=== PATIENT | female | born 1990 | race Caucasian/White ===

== ENCOUNTER 2024-01-20 10:21 | Emergency (ER) | payer OTHER, SELFPAY ==
[2024-01-20 10:21] VITALS: BP 126/72; PULSE 78; RESP 16; TEMP 36.7; O2SAT 97; BMI 25.0
--- NOTE | 2024-01-20 10:25 | XR_ITS ---
FINAL REPORT CLINICAL HISTORY: Right foot pain COMPARISON: None FINDINGS: 2 views of the right foot were obtained. There is no acute fracture or dislocation. The joint spaces are intact. There is no soft tissue abnormality. IMPRESSION: No acute process. Reviewed, Interpreted and Dictated by Darron Worthy III, MD Transcribed by Bernadine Mars Authenticated and [facility]
--- NOTE | 2024-01-20 10:25 | XR_ITS ---
FINAL REPORT CLINICAL HISTORY: Right lower leg pain COMPARISON: None FINDINGS: 2 views of the right tibia/fibula were obtained. There is no acute fracture or dislocation. The joint spaces are intact. There is a soft tissue defect at the anterior proximal lower leg. IMPRESSION: Soft tissue defect without acute bony abnormality. Reviewed, Interpreted and Dictated by Darron Worthy III, MD Transcribed by Bernadine Mars Authenticated and . [facility]
--- NOTE | 2024-01-20 10:25 | XR_ITS ---
FINAL REPORT CLINICAL HISTORY: Right ankle pain COMPARISON: None FINDINGS: Two views of the right ankle were obtained. There is no acute fracture or dislocation. The joint spaces are well preserved. There is no acute soft tissue abnormality. IMPRESSION: No acute abnormality identified. Reviewed, Interpreted and Dictated by Darron Worthy III, MD Transcribed by Bernadine Mars Authenticated and [facility] [place] [place]
--- NOTE | 2024-01-20 10:25 | XR_ITS ---
FINAL REPORT CLINICAL HISTORY: Right knee pain COMPARISON: None FINDINGS: Three views of the right knee reveal no evidence of fracture or dislocation. The bony alignment is normal. The joint spaces are preserved. There is no evidence of joint effusion. There is a soft tissue defect at the proximal lower leg anteriorly. IMPRESSION: Soft tissue defect without acute bony abnormality. Reviewed, Interpreted and Dictated by Darron Worthy III, MD Transcribed by Bernadine Mars Authenticated and [facility]
--- NOTE | 2024-01-20 10:27 | ED_ITS ---
Discharge Plan Disposition Patient Disposition: Home, Self-Care Condition: Good Chief Complaint: Fall Referrals Follow up/Referrals: Sacha Lambert MD [Primary Care Provider] - See instructions Activity Restrictions/Add. Instructions Additional Instructions/Restrictions: You have been evaluated in the ED for your complaints. You may follow-up with your PCP in the next 3 to 5 days. Please return to ED for any new or worsening symptoms. Please take Tylenol and ibuprofen as needed for pain. Please keep the wound clean and dry over the next several days. Sutures will need to be removed after 7 to 10 days. You can go to your PCP for removal or return to the ED. Clinical Impressions Clinical Impression: Fall, Knee pain, right, Laceration of knee, right Print Language Print Language: Luxembourgish Discharge ED Provider: Lorenzo Casarez General Adult HPI General Chief complaint: Fall Stated complaint: fall Time Seen by Provider: 01/20/24 10:22 History of Present Illness HPI narrative: 33-year-old female with no pertinent past medical history presents today for evaluation after having a fall. She states that she was walking when she slid and landed on her right knee sustaining injury., Complains of right knee pain, right tip/fib pain and right ankle pain. Tetanus is not up-to-date. Has not been ambulatory since the event. Denies hitting her head or loss of consciousness or any other associated injuries. no further complaints Related Data Allergies Allergy/AdvReac Type Severity Reaction Status Date / Time No Known Allergies Allergy Unverified 05/05/17 14:52 [facility] Disclaimer: The information contained in this section may have been updated after the patient was seen, as this information can be updated by other users. Social History Smoking Status: Current every day smoker alcohol intake: never current occupational status: other Travel in the last 8 weeks: None ROS Obtained: Yes All systems reviewed & no additional complaints except as documented Physical Exam General General appearance: alert and in no apparent distress Head Head exam: atraumatic and normocephalic Eye Eye exam: Present normal appearance, PERRL and EOMI ENT ENT exam: Present normal oropharynx and mucous membranes moist Neck Neck exam: Present full ROM; Absent meningismus Respiratory Respiratory exam: Absent respiratory distress, wheezes, stridor or accessory muscle use Cardiovascular Cardiovascular exam: Present normal rhythm Abdominal Exam Abdominal exam: Present soft; Absent distention, tenderness, guarding, rebound or rigidity Extremities Exam Extremities exam: Present tenderness (Tenderness to palpation over the right knee anteriorly, right hip/fib and right ankle. She does have an open wound over the right knee. Abrasions over the right ankle.); Absent normal inspection or full ROM Neurological Exam Neurological exam: Present alert, oriented X3 and CN II-XII intact; Absent motor sensory deficit Psychiatric Psychiatric exam: Present normal affect and normal mood Skin Skin exam: Present warm and dry Medical Decision Making Medical Records Medical records reviewed: Yes I reviewed the patient's medical records. Rakesh Inquiry Pt receiving controlled substance: No Rakesh was queried for this patient: No Vital Signs: 01/20/24 10:21 01/20/24 10:31 01/20/24 11:01 Temperature 98.1 F Temperature Source Oral Pulse Rate 136 H 77 Pulse Rate [Left Radial] 78 Respiratory Rate 16 Blood Pressure 126/72 131/92 H Blood Pressure [Right Arm] 126/72 Blood Pressure Mean [Right Arm] 90 02 Sat by Pulse Oximetry 97 96 99 Oxygen Delivery Method Room Air Room Air Orders (Tests/Meds): ED MEDICATIONS Discontinued Medications Generic Name Dose Route Start Last Admin Trade Name Freq PRN Reason Stop Dose Admin Cocaine HCl 1 ml 01/20/24 10:01/20/24 10:40 Cocaine 4% Topical Soln 4ml Bottle TP 01/20/24 10:26 1 ml ONCE ONE Administration Epinephrine HCl 1 mg 01/20/24 10:01/20/24 10:39 Epinephrine 1 Mg/Ml Ampul TP 01/20/24 10:26 1 mg ONCE ONE Administration Lidocaine HCl 1 ml 01/20/24 10:01/20/24 10:40 Lidocaine 2% Urojet 10ml TP 01/20/24 10:26 1 ml ONCE ONE Administration Morphine Sulfate 4 mg 01/20/24 10:01/20/24 10:39 Morphine 4mg/Ml Syringe IV 01/20/24 10:26 4 mg ONCE ONE Administration Ondansetron HCl 4 mg 01/20/24 10:01/20/24 10:39 Ondansetron 4mg/2ml Vial IV 01/20/24 10:26 4 mg ONCE ONE Administration Tetanus/Diphtheria Toxoids 0.5 ml 01/20/24 10:33 01/20/24 10:47 Tetanus-Diphth Toxoid, Adult 0.5ml Syr IM 01/20/24 10:34 0.5 ml .ONCE ONE Administration ORDERS Category Date Time Status Ankle XR - Right 2 Views [XR ankle RT 2V] Stat Exams 01/20/24 10:25 Completed Fibula/tibia XR right 2 views [XR tibia fibula RT 2V] Exams 01/20/24 10:25 Completed Stat Foot XR right 2 views [XR foot RT 2V] Stat Exams 01/20/24 10:25 Taken Knee XR right 3 views [XR knee RT 3V] Stat Exams 01/20/24 10:25 Completed Medical Decision Narrative: 33-year-old female with no pertinent past medical history presents today for evaluation after having a fall. She states that she was walking when she slid and landed on her right knee sustaining injury., Complains of right knee pain, right tip/fib pain and right ankle pain. Tetanus is not up-to-date. Has not been ambulatory since the event. Denies hitting her head or loss of consciousness or any other associated injuries. On assessment she was hemodynamically stable and in distress secondary to pain. Chest clear to station bilaterally abdomen soft nondistended nontender palpation. Tenderness to palpation over the right knee anteriorly, right hip/fib and right ankle. She does have an open wound over the right knee. 4cm laceration, no exposed bone. Abrasions over the right ankle. Palpable DP pulses. Otherwise exam vitals unremarkable differential diagnoses include but limited to open fracture, tibial plateau fracture, knee dislocation, tip/fib fracture, ankle fracture, among others X-ray imaging, informal interpretation did not show any acute bony abnormalities or tibial plateau fracture. Radiology report confirmed. I discussed ED workup and results with patient and patient was consented for laceration repair and her wound was cleansed with soap and water and irrigated extensively with removal of multiple debris. 1 running suture was placed with patient tolerating well. Her tetanus was also updated while in the ED. She was able to ambulate. Provided with return to ED precautions and instructions concerning PCP follow-up. Patient verbalized understanding and agreement with plan. Subsequently discharged hemodynamically stable and in no acute distress. Procedures Laceration Laceration 1: Site: lower extremity Side (If applicable): right Size (cm): 4 Description: flap and contaminated Depth: simple, single layer Local Anesthetic: lidocaine 1% Amount of anesthesia used (mL): 8 Pre-repair: wound explored and irrigated extensively Skin layer closed with: nylon Size (cm): 4-0 Number of sutures: 1 Technique: running Critical Care Critical Care Time Critical Care Time: No
[2024-01-20 10:31] VITALS: BP 126/72; PULSE 136; O2SAT 96
[2024-01-20] MEDS: MORPHINE 4MG/ML SYRINGE 4 MG IV (10:39)
[2024-01-20] MEDS: ONDANSETRON 4MG/2ML VIAL 4 MG IV (10:39)
[2024-01-20] MEDS: EPINEPHrine 1 MG/ML AMPUL TP (10:39)
[2024-01-20] MEDS: LIDOCAINE 2% UROJET 10ML TP (10:40)
[2024-01-20] MEDS: COCAINE 4% TOPICAL SOLN 4ML BOTTLE 1 ML TP (10:40)
--- NOTE | 2024-01-20 10:41 | PC.NURSE ---
RAD at [facility]
[2024-01-20] MEDS: TETANUS-DIPHTH TOXOID, ADULT 0.5ML SYR 0.5 ML IM (10:47)
--- NOTE | 2024-01-20 10:49 | PC.NURSE ---
Face sheet faxed to [facility]
[2024-01-20 11:01] VITALS: BP 131/92; PULSE 77; O2SAT 99
--- NOTE | 2024-01-20 11:01 | ECG_ITS ---
APPROVED REPORT Exam: Resting ECG HR:71 bpm ECG Measurements Heart Rate 71 AXES CO 145 P 45 QRSd 103 QRS 46 QT 397 T 46 QTc 419 Conclusion SINUS RHYTHM POSSIBLE RIGHT VENTRICULAR CONDUCTION DELAY [RSR (QR) IN V1/V2] BORDERLINE ECG UNCONFIRMED REPORT Electronically signed by : MARI LEON, 01/20/2024 15:43:10
--- NOTE | 2024-01-20 11:43 | PC.NURSE ---
pt able to ambulate with no problems
[2024-01-20 12:14] VITALS: BP 131/92; PULSE 77; RESP 16; TEMP 36.7; O2SAT 99
== END 2024-01-20 12:15 | disposition home or self-care (01) ==
PROVIDERS: Emergency Provider Emergency Medicine; PCP Family Medicine
DX: M79.661 Pain in right lower leg; M25.571 Pain in right ankle and joints of right foot; F17.200 Nicotine dependence, unspecified, uncomplicated; W01.0XXA Fall on same level from slipping, tripping and stumbling without subsequent striking against object, initial encounter; S81.011A Laceration without foreign body, right knee, initial encounter; Y92.9 Unspecified place or not applicable
CPT/HCPCS: 73562; 73590; 73600; 73620; 90471; 90714; 93005; 96374; 96375; 99285; J2270; J2405

== ENCOUNTER 2024-12-21 20:22 | Emergency (ER) | payer MEDICAID, SELFPAY ==
--- OUTSIDE RECORDS SUMMARY | 2024-11-18 17:43 | XMS_ITS | Encounter Summary ---
Author Organization [facility] Address [address] [place] [address] Care Team Providers Care Operations Administrative Assistant Name Role Phone Andres Armendariz MD Primary Care Provid er Reason for Visit * Reason Comments Headache Encounter Details Date Type Department Care Team (Late st Contact Info) Description 11/18/2024 5:43 PM EDT - 11/18/2024 7:57 PM EDT Emergency [facility] EM[facility] [address] [place] [id number] Catracho Cheung MD [address] [place] [address] Vamshi Cannon DO [address] [place] [address] Other migraine with status migrainosus, not intractable (Primary Dx) Discharge Disposition: Home or Self Care Social History Tobacco Use Types Packs/Day Years Used Date Smoking Tobacco: Never Assessed Abuse Screen Answer Date Recorded Feels Unsafe at Home or Work/School no 11/18/2024 Feels Threatened by Someone no 08/2024 Does Anyone Try to Keep You From Having Contact with Others or Doing Things Outside Your Home? no 11/18/2024 Physical Signs of Abuse Present no 11/18/2024 Comments No Sex and Gender Information Value Date Recorded Sex Assigned at Not on file Legal Sex Female 5:31 PM EDT Gender Identity Not on file Sexual Orientation Not on file documented as of this encounter Last Filed Vital Signs Vital Sign Reading Time Taken Comments Blood Pressure 149/105 11/18/2024 7:24 PM EDT Pulse 61 11/18/2024 7:30 PM EDT Temperature 36.6 C (97.8 F) 11/18/2024 7:30 PM EDT Respiratory Rate 18 11/18/2024 5:46 PM EDT Oxygen Saturation 99% 11/18/2024 7:30 PM EDT Inhaled Oxygen Concentration - - Weight 93 kg (205 lb) 11/18/2024 5:46 PM EDT Height 162.6 cm (5' 4 ) 11/18/2024 5:46 PM EDT Body Mass Index 35.19 11/18/2024 5:46 PM EDT documented in this encounter Functional Status * Calculated C-SSRS Risk Score (Lifetime/Recent) Answer Date of Assessment Author No Risk Indicated 11/18/2024 6:07 PM EDT Diana Chacon RN * [place] Suicide Severity Rating Scale (Screener/Recent Self-Report) Question Answer Date of Assessment Author 1. Wish to be (Past 1 Month) No 025 6:07 PM EDT Diana Akbar RN 2. Non-Specific Active Suici benedicto Thoughts (Past 1 Month) No 11/18/2024 6:07 PM EDT Paul Akbar RN 6. Suicidal Behavior (Lifetime) No 6:07 PM EDT Diana Akbar RN documented as of this encounter Discharge Instructions * Discharge Instructions* Pooja Norman APRN - 11/18/2024 7:49 PM EDT Rest, drink plenty of fluids. Continue with your home migraine medications as prescribed. You may take yoet-vux-hyzrtce acetaminophen and Motrin as needed for aches pains and fever. Follow-up with your family doctor as scheduled on for reevaluation and further treatment as necessary. Return to the emergency department immediately for any acutely developing neurological symptoms, any persistent vomiting, any fevers of 101 or greater or any new or worse concerns. * Attachments The following attachments cannot be sent through Care Everywhere. * Migraine Headache Uwhr-tx-Nqah (Icelandic) documented in this encounter Medications at Time of Discharge aspirin-acetamino phen-caffeine (EXCEDRIN MIGRAINE) 250-250-65 MG per tablet Take 1 tablet by mouth Every 6 (Six) Hours As Needed for Headache. buprenorphine-nal oxone (SUBOXONE) 8-[address] tablet [address] 1 tablet under the tongue Daily. Cariprazine HCl (Vraylar) 3 MG capsule capsule Take 1 capsule by mouth Daily. cetirizine (zyrTEC) 5 MG tablet Take 1 tablet by mouth Daily. Cholecalciferol 25 MCG (1000 UT) tablet Take 1 tablet by mouth Daily. guanFACINE (TENEX) 1 MG tablet Take 1 tablet by mouth Every Night. lisinopril (PRINIVIL,ZESTRIL ) 10 MG tablet Take 1 tablet by mouth Daily. polyethylene glycol (MiraLax) 17 g packet Take 17 g by mouth Daily. venlafaxine XR (EFFEXOR-XR) 37.5 MG 24 hr capsule Take 1 capsule by mouth Daily. documented as of this encounter ED Notes * Vamshi Cannon DO - 11/18/2024 7:57 PM EDT SHARED VISIT ATTESTATION: This visit was performed by myself and an APC. I personally approved the management plan/medical decision making and take responsibility for the patient management. SHARED VISIT NOTE: Patient is 34 y.o. year old female that presents to the ED for evaluation of migraine headache. Onset is been about 4 days now. Physical Exam ED Course: BP (!) 149/105 (BP Location: Right arm, Patient Position: Lying) Pulse 61 Temp 97.8 ??F (36.6 ??C) (Oral) Resp 18 Ht 162.6 cm (64 ) Wt 93 kg (205 lb) LMP (LMP Unknown) SpO2 99% BMI 35.19 kg/m?? The following orders were placed and all results were independently analyzed by me: Orders Placed This Encounter Procedures Manual Blood Pressure - Notify provider of result Manual Blood Pressure - Notify provider of result Vital Signs Recheck Medications Given in the Emergency Department: Medications sodium chloride 0.9 % bolus 1,000 mL (0 mL Intravenous Stopped 11/18/241941) metoclopramide (REGLAN) injection 10 mg (10 mg Intravenous Given 11/18/241848) ketorolac (TORADOL) injection 30 mg (30 mg Intravenous Given 11/18/241847) diphenhydrAMINE (BENADRYL) injection 25 mg (25 mg Intravenous Given 11/18/241848) ED Course: Labs: Lab Results (last 24 hours) No results found for the last 24 hours. Imaging: No Radiology Exams Resulted Within Past 24 Hours MDM: Procedures Vamshi Cannon DO 16:16 EDT 11/22/24 Vamshi Cannon DO 11/22/24 1616 * Emerson PoojaMANUEL - 11/18/2024 5:54 PM EDT Time: 5:54 PM EDT Date of encounter: 11/18/2024 Independent Historian/Clinical History and Information was obtained by: Patient History is limited by: N/A Chief Complaint: MIGRAINE History of Present Illness: The patient is a 34 y.o. year old female who presents to the emergency department for evaluation ofleft-sided buddhist migraine that she states she has had for 4 days. She reports that she has a history of migraines and takes Emgality at home but states is not working this week. She states that it has been constant. She denies any fevers. She reports no nausea vomiting or diarrhea. She states she has had no vision loss or changes but does get every now and then some intermittent blurry vision inher left eye. She denies any neck pain. She denies any recent falls or trauma and is alert and oriented with a grossly intact neuroexam. She has no nuchal rigidity. Patient Care Team Primary Care Provider: Andres Armendariz MD Past Medical History: Allergies Allergen Reactions Hydrocodone Anaphylaxis Wellbutrin [Bupropion] Other (See Comments) SI History reviewed. No pertinent past medical history. History reviewed. No pertinent surgical history. History reviewed. No pertinent family history. Home Medications: Prior to Admission medications Not on File Social History: Review of Systems: Review of Systems Constitutional: Negative for chills and fever. HENT: Negative for congestion, ear pain and sore throat. Eyes: Positive for visual disturbance (Intermittent left eye blurriness). Negative for photophobia and pain. Respiratory: Negative for cough, chest tightness, shortness of breath and wheezing. Cardiovascular: Negative for chest pain. Gastrointestinal: Negative for abdominal pain, diarrhea, nausea and vomiting. Genitourinary: Negative for flank pain and hematuria. Musculoskeletal: Negative for back pain, joint swelling, neck pain and neck stiffness. Skin: Negative for pallor and rash. Neurological: Positive for headaches. Negative for seizures. All other systems reviewed and are negative. Physical Exam: BP (!) 149/105 (BP Location: Right arm, Patient Position: Lying) Pulse 61 Temp 97.8 ??F (36.6 ??C) (Oral) Resp 18 Ht 162.6 cm (64 ) Wt 93 kg (205 lb) LMP (LMP Unknown) SpO2 99% BMI 35.19 kg/m?? Physical Exam Vitals and nursing note reviewed. Constitutional: General: She is not in acute distress. Appearance: Normal appearance. She is not ill-appearing or toxic-appearing. HENT: Head: Normocephalic and atraumatic. Nose: Nose normal. Eyes: General: No scleral icterus. Conjunctiva/sclera: Conjunctivae normal. Pupils: Pupils are equal, round, and reactive to light. Cardiovascular: Rate and Rhythm: Normal rate and regular rhythm. Pulses: Normal pulses. Pulmonary: Effort: Pulmonary effort is normal. No respiratory distress. Musculoskeletal: General: Normal range of motion. Cervical back: Normal range of motion and neck supple. No rigidity or tenderness. Lymphadenopathy: Cervical: No cervical adenopathy. Skin: General: Skin is warm and dry. Capillary Refill: Capillary refill takes less than 2 seconds. Findings: No rash. Neurological: General: No focal deficit present. Mental Status: She is alert and oriented to person, place, and time. Mental status is at baseline. Psychiatric: Mood and Affect: Mood normal. Behavior: Behavior normal. Medical Decision Making: Comorbidities that affect care: Migraine headaches External Notes reviewed: None The following orders were placed and all results were independently analyzed by me: Orders Placed This Encounter Procedures Manual Blood Pressure - Notify provider of result Manual Blood Pressure - Notify provider of result Vital Signs Recheck Medications Given in the Emergency Department: Medications sodium chloride 0.9 % bolus 1,000 mL (0 mL Intravenous Stopped 11/18/241941) metoclopramide (REGLAN) injection 10 mg (10 mg Intravenous Given 11/18/241848) ketorolac (TORADOL) injection 30 mg (30 mg Intravenous Given 11/18/241847) diphenhydrAMINE (BENADRYL) injection 25 mg (25 mg Intravenous Given 11/18/241848) ED Course: Labs: Lab Results (last 24 hours) No results found for the last 24 hours. Imaging: No Radiology Exams Resulted Within Past 24 Hours Differential Diagnosis and Discussion: Headache: Differential diagnosis includes but is not limited to migraine, cluster headache, hypertension, tumor, subarachnoid bleeding, pseudotumor cerebri, temporal arteritis, infections, tension headache, and TMJ syndrome. PROCEDURES: No orders to display Procedures MDM Number of Diagnoses or Management Options Other migraine with status migrainosus, not intractable: new and requires workup Risk of Complications, Morbidity, and/or Mortality Presenting problems: low Diagnostic procedures: low Management options: low Patient Progress Patient progress: stable Patient Care Considerations: ANTIBIOTICS: I considered prescribing antibiotics as an outpatient however no bacterial focus of infection was found. Consultants/Shared Management Plan: None Social Determinants of Health: Patient is independent, reliable, and has access to care. Disposition and Care Coordination: Discharged: The patient is suitable and stable for discharge with no need for consideration of admission. I have explained the patient??s condition, diagnoses and treatment plan based on the information available to me at this time. I have answered questions and addressed any concerns. The patient has a good understanding of the patient??s diagnosis, condition, and treatment plan as can be expected at this point. The vital signs have been stable. The patient??s condition is stable and appropriate fordischarge from the emergency department. The patient will pursue further outpatient evaluation with the primary care physician or other designated or consulting physician as outlined in the discharge instructions. They are agreeable to thisplan of care and follow-up instructions have been explained in detail. The patient has received these instructions in written format and has expressed an understanding of the discharge instructions. The patient is aware that any significant change in condition or worsening of symptoms should promptan immediate return to this or the closest emergency department or call to 911. I have explained discharge medications and the need for follow up with the patient/caretakers. Thiswas also printed in the discharge instructions. Patient was discharged with the following medications and follow up: Medication List No changes were made to your prescriptions during this visit. Andres Armendariz MD [address] [place] [address] THURSDAY FOR FOLLOW UP, SCHEDULED Final diagnoses: Other migraine with status migrainosus, not intractable ED Disposition ED Disposition Discharge Condition Stable Comment -- This medical record created using voice recognition software. Pooja Norman APRN 11/18/241956 Cosigned by Vamshi Cannon DO at 11/22/2024 4:16 PM EDT Associated attestation - Vamshi Cannon DO - 11/22/2024 4:16 PM EDT Vamshi Cannon DO 11/22/2024 16:16 EDT documented in this encounter Plan of Treatment Not on file documented as of this encounter Visit Diagnoses Diagnosis Other migraine with status migrainosus, not intractable- Primary documented in this encounter Administered Medications Inactive Administered Medications - up to 3 most recent administrations Medication Order MAR Action Action Date Dose Rate Site diphenhydrAMINE (BENADRYL) injection 25 mg 25 mg, Intravenous, Once, On Thu11/18/24 at 1845, For 1 dose, 25 mg may be given IV push over less than 1 minute. Caution: Look alike/sound alike drug alert. This med may be ordered in other forms and routes. Before giving verify the last time the drug was given by any route/form. Given 11/18/2024 6:49 PM EDT 25 mg ketorolac (TORADOL) injection 30 mg 30 mg, Intravenous, Once, On Thu11/18/24 at 1845, For 1 dose, Based on patient request - if ordered for moderate or severe pain, provider allows for administration of a medication prescribed for a lower pain scale. (BKC) If given for pain, use the following pain scale: Mild Pain = Pain Score of 1-3, CPOT 1-2 Moderate Pain = Pain Score of 4-6, CPOT 3-4 Severe Pain = Pain Score of 7-10, CPOT 5-8 Given 11/18/2024 6:48 PM EDT 30 mg metoclopramide (REGLAN) injection 10 mg 10 mg, Intravenous, Once, On Thu11/18/24 at 1845, For 1 dose, Doses of 10 mg or less can be given IV push undiluted over 1 to 2 minutes Given 11/18/2024 6:49 PM EDT 10 mg sodium chloride 0.9 % bolus 1,000 mL 1,000 mL, Intravenous, at 2,000 mL/hr, Administer over 0.5 Hours, Once, On Thu11/18/24 at 1845, For 1 dose New Bag 11/18/2024 6:48 PM EDT 1,000 mL 2000 mL/hr documented in this encounter Active and Recently Administered Medications Times are shown in EDT. Scheduled Medication Order 11/16/2024 11/17/2024 11/18/2024 diphenhydrAMINE (BENADRYL) injection 25 mg (COMPLETED) 25 mg, Intravenous, Once, On Thu11/18/24 at 1845, For 1 dose, 25 mg may be given IV push over less than 1 minute. Caution: Look alike/sound alike drug alert. This med may be ordered in other forms and routes. Before giving verify the last time the drug was given by any route/form. 1848 (Given - Provid er: Diana Akbar RN) ketorolac (TORADOL) injection 30 mg (COMPLETED) 30 mg, Intravenous, Once, On Thu11/18/24 at 1845, For 1 dose, Based on patient request - if ordered for moderate or severe pain, provider allows for administration of a medication prescribed for a lower pain scale. (BKC) If given for pain, use the following pain scale: Mild Pain = Pain Score of 1-3, CPOT 1-2 Moderate Pain = Pain Score of 4-6, CPOT 3-4 Severe Pain = Pain Score of 7-10, CPOT 5-8 1847 (Given - Provid er: Diana Akbar RN) metoclopramide (REGLAN) injection 10 mg (COMPLETED) 10 mg, Intravenous, Once, On Thu11/18/24 at 1845, For 1 dose, Doses of 10 mg or less can be given IV push undiluted over 1 to 2 minutes 1848 (Given - Provid er: Diana Akbar RN) sodium chloride 0.9 % bolus 1,000 mL (COMPLETED) 1,000 mL, Intravenous, at 2,000 mL/hr, Administer over 0.5 Hours, Once, On Thu11/18/24 at 1845, For 1 dose 1848 (New Bag - Prov ider: Diana Akbar RN)1942 (Stopped - Provider: Rachna Larson RN) documented in this encounter Care Teams Operations Administrative Assistant Relationship Specialty Start Date End Date Andres Armendariz MD [address] [place] [address] PCP - General Preventative Medicine 11/18/24 documented as of this encounter
--- OUTSIDE RECORDS SUMMARY | 2024-11-24 09:30 | XMS_ITS | Encounter Summary ---
Author Organization [place] [address] Care Team Providers Care Lard Tub Washer Name Role Phone Sacha Lambert MD Primary Care Provider [phone] Reason for Referral * Consultation (Routine) - Pending Review Specialty Diagnoses / Procedures Referred By Contdany t Referred To Contact Addiction Medicine Sacha Lambert MD [address] [place] [address] [place] [address] Phone: tel: fax: [facility] [address] [place] [address] Phone: tel: fax: Referral ID Status Reason Start Date Expiration Date V isits Requested Visits Authorized [id number] Pending Review 11/24/2024 11/24/2025 99 99 Reason for Visit * Reason Comments Medication Management Encounter Details Date Type Department Care Team (Late st Contact Info) Description 11/24/2024 9:30 AM EDT Office Visit [facility] [place] [address] [place] [address] Sacha Lambert MD [address] [place] [address] [place] BILL [id number] Opiate abuse, episodic (HCC) (Primary Dx); Prediabetes; Bipolar affective disorder, current episode mixed, without psychotic features (HCC); Generalized anxiety disorder; Opioid dependence with opioid-induced disorder (HCC) Social History Tobacco Use Types Packs/Day Years Used Date Smoking Tobacco: Every Day Cigarettes 1.5 21.6 Started: 05/18/2003 Smokeless Tobacco: Never Comments:Currently Vaping Alcohol Use Standard Drinks/Week Comments No 0 (1 standard drink = 0.6 oz pur e alcohol) recovering; none since [facility] Utilities Answer Date Recorded In the past 12 months has e Fig[employer], gas, oil, or water company threatened to shut off services in your home? No 06/14/2024 Overall Financial Resource Strain (CARDIA) Answe r Date Recorded How hard is it for you to pa y for the very basics like food, housing, medical care, and heating? Somewhat hard 06/14/2024 PHQ-2 Answer Date Recorded PHQ-2 Total Score 2 06/14/2024 [facility] - Occupational Stress Questionnaire Answer Date Recorded Do you feel stress - tense, restless, nervous, or anxious, or unable to sleep at night because your mind is troubled all the time - these days? To some extent 06/14/2024 Exercise Vital Sign Answer Date Recorde d On average, how many days pe r week do you engage in moderate to strenuous exercise (like a brisk walk)? 0 days 06/14/2024 On average, how many minutes do you engage in exercise at this level? 0 min 06/14/2024 Hunger Vital Sign Answer Date Recorded Within the past 12 months, y ou worried that your food would run out before you got the money to buy more. Never true 06/14/19 25 Within the past 12 months, t he food you bought just didn't last and you didn't have money to get more. Never true 06/14/2024 PRAPARE - Transportation Answer Date Re corded In the past 12 months, has l ack of transportation kept you from medical appointments or from getting medications? No 07/2022 In the past 12 months, has l ack of transportation kept you from meetings, work, or from getting things needed for daily living? No 12/18/2022 [facility] IP Transportation Answer D ate Recorded In the past 12 months, has l ack of reliable transportation kept you from medical appointments, meetings, work or from getting things needed for daily living? No 06/14/2024 Sexually Active Control Partners Comments Yes Male Comments No Sex and Gender Information Value Date Recorded Sex Assigned at Not on file Legal Sex Female 2:47 PM EDT Gender Identity Not on file Sexual Orientation Not on file documented as of this encounter Last Filed Vital Signs Vital Sign Reading Time Taken Comments Blood Pressure 124/78 11/24/2024 9:40 AM EDT Pulse 100 11/24/2024 9:40 AM EDT Temperature 37.1 C (98.7 F) 11/24/2024 9:40 AM EDT Respiratory Rate 18 11/24/2024 9:40 AM EDT Oxygen Saturation 98% 11/24/2024 9:40 AM EDT Inhaled Oxygen Concentration - - Weight 89.4 kg (197 lb) 11/24/2024 9:40 AM EDT Height 162.6 cm (5' 4 ) 11/24/2024 9:40 AM EDT Body Mass Index 33.81 11/24/2024 9:40 AM EDT documented in this encounter Functional Status * Is the person deaf or does he/she have serious difficulty hearing? Answer Date of Assessment Author No 05/19/2024 11:01 AM Patricio Partida RN * Is the person blind or does he/she have serious difficulty seeing even when wearing glasses? Answer Date of Assessment Author No 05/19/2024 11:01 AM Patricio Partida RN * Does this person have serious difficulty walking or climbing stairs? Answer Date of Assessment Author No 05/19/2024 11:01 AM Patricio Partida RN * Does this person have difficulty dressing or bathing? Answer Date of Assessment Author No 05/19/2024 11:01 AM Patricio Partida RN * Because of a physical, mental or emotional condition, does this person have difficulty doing errands alone such as visiting a doctor's office or shopping? Answer Date of Assessment Author No 05/19/2024 11:01 AM Patricio Partida RN documented as of this encounter Mental Status * Because of a physical, mental or emotional condition, does this person have serious difficulty concentrating, remembering or making decisions? Answer Entry Date Author No 05/19/2024 11:01 AM EST Elliot , Alevism, RN documented in this encounter Ordered Prescriptions Prescription Sig Dispense Quantity Refills Last Filled Start Date End Date busPIRone (BUSPAR) 10 mg Oral TabletIndications :Generalized anxiety disorder Take 1 Tablet by mouth 2 times daily. 180 Tablet 3 11/24/2024 cariprazine (VRAYLAR) 4.5 mg Oral CapsuleIndication s:Bipolar affective disorder, current episode mixed, without psychotic features (HCC) Take 1 Capsule by mouth daily. 90 Capsule 3 11/24/2024 Lancets Mis MiscIndications:P rediabetes Daily as needed 100 Each 2 11/24/2024 Blood-Glucose Meter Misc KitIndications:Pr ediabetes Use to check blood glucose levels to monitor for hypoglycemic events 1 Kit 11/24/2024 Blood Sugar Diagnostic Misc StripIndications: Prediabetes 1 Strip by Misc.(Non-Drug; Combo Route) route daily as needed. 100 Each 2 11/24/2024 documented in this encounter Progress Notes * Sacha Lambert MD - 11/24/2024 9:30 AM EDTAssociated Problem(s): Opiate abuse, episodic (HCC) Orders: POCT URINE DRUG SCREEN ICUP 14 COMPLIANCE OPIOID PANEL QUANT ONLY, URINE; Future AMB REFERRAL TO ADDICTION MEDICINE Recently released from 1 month inpatient rehab facility but had a relapse with methamphetamine use and possible opioid use 2 days ago. UDS today is positive for amphetamines, methamphetamine, and buprenorphine which she is currently prescribed. She still has a 10-day supply of buprenorphine. Referred to [facility] for further addiction management and counseling services and continue avoid buprenorphine management. When she is stable in her sobriety will consider managing her buprenorphinehere in the future but at this time she needs full early addiction management services including counseling group therapy to help achieve and maintain her sobriety -Patient reports she has ample Narcan at home * Sacha Lambert MD - 11/24/2024 9:30 AM EDTAssociated Problem(s): Prediabetes Orders: Blood Sugar Diagnostic Misc Strip; 1 Strip by Misc.(Non-Drug; Combo Route) route daily as needed. Blood-Glucose Meter [facility] Kit; Use to check blood glucose levels to monitor for hypoglycemic events Lancets [facility] Mis; Daily as needed * Sacha Lambert MD - 11/24/2024 9:30 AM EDTAssociated Problem(s): Bipolar affective disorder, current episode mixed, without psychotic features (HCC) Bipolar symptoms not well-controlled today, will increase from 3 mg to 4.5 mg of Vraylar. Orders: cariprazine (VRAYLAR) 4.5 mg Oral Capsule; Take 1 Capsule by mouth daily. * Sacha Lambert MD - 11/24/2024 9:30 AM EDTAssociated Problem(s): Generalized anxiety disorder Anxiety not well-controlled today, will add on BuSpar to regiment Orders: busPIRone (BUSPAR) 10 mg Oral Tablet; Take 1 Tablet by mouth 2 times daily. * Sacha Lambert MD - 11/24/2024 9:30 AM EDT Assessment & Plan Opiate abuse, episodic (HCC) Orders: POCT URINE DRUG SCREEN ICUP 14 COMPLIANCE OPIOID PANEL QUANT ONLY, URINE; Future AMB REFERRAL TO ADDICTION MEDICINE Recently released from 1 month inpatient rehab facility but had a relapse with methamphetamine use and possible opioid use 2 days ago. UDS today is positive for amphetamines, methamphetamine, and buprenorphine which she is currently prescribed. She still has a 10-day supply of buprenorphine. Referred to [facility] for further addiction management and counseling services and continue avoid buprenorphine management. When she is stable in her sobriety will consider managing her buprenorphinehere in the future but at this time she needs full early addiction management services including counseling group therapy to help achieve and maintain her sobriety -Patient reports she has ample Narcan at home Prediabetes [facility]: [facility] [address] [facility].(Non-Drug; Combo Route) route daily as needed. Blood-Glucose Meter Misc Kit; Use to check blood glucose levels to monitor for hypoglycemic events Lancets Misc Misc; Daily as needed Bipolar affective disorder, current episode mixed, without psychotic features (HCC) Bipolar symptoms not well-controlled today, will increase from 3 mg to 4.5 mg of Vraylar. Orders: cariprazine (VRAYLAR) 4.5 mg Oral Capsule; Take 1 Capsule by mouth daily. Generalized anxiety disorder Anxiety not well-controlled today, will add on BuSpar to regiment Orders: busPIRone (BUSPAR) 10 mg Oral Tablet; Take 1 Tablet by mouth 2 times daily. Progress Note: Vitals: 11/24/24 0940 BP: 124/78 Pulse: 100 Resp: 18 Temp: 98.7 ??F (37.1 ??C) TempSrc: Tympanic SpO2: 98% Weight: 197 lb (89.4 kg) Height: 5' 4 (1.626 m) Body mass index is 33.81 kg/m??. SUBJECTIVE: Chief Complaint Patient presents with Medication Management HPI: She was recently discharged from an inpatient rehab facility for opioid dependency and abuse. She was sober while she was in the facility but when she was released she had a lot of conflicts with family specifically her mother and a lot of life stressors. She did have a admitted relapse with methamphetamine, she is unsure if any opioids were contained within the methamphetamines unintentionally. She is on buprenorphine and has been taking this. She is interested in continuing her sobriety management and getting sober and staying sober. She is very motivated to stay sober to help take care of her kids. She feels like her anxiety and bipolar are not well-controlled currently which are contributing to some of the stressors for her substance abuse. Review of Systems Constitutional: Negative for activity change, chills, diaphoresis and fever. Psychiatric/Behavioral: Positive for dysphoric mood and sleep disturbance. Negative for behavioral problems and confusion. The patient is nervous/anxious. OBJECTIVE: Physical Exam Vitals reviewed. Constitutional: General: She is not in acute distress. Appearance: She is well-developed. She is not diaphoretic. HENT: Head: Normocephalic and atraumatic. Eyes: Pupils: Pupils are equal, round, and reactive to light. Cardiovascular: Rate and Rhythm: Normal rate and regular rhythm. Pulmonary: Effort: Pulmonary effort is normal. Breath sounds: Normal breath sounds. No wheezing. Skin: Findings: No rash. Neurological: Mental Status: She is alert and oriented to person, place, and time. Psychiatric: Mood and Affect: Mood is anxious. Speech: Speech is not tangential. Behavior: Behavior normal. Behavior is not agitated or aggressive. Thought Content: Thought content normal. Thought content does not include suicidal ideation. Judgment: Judgment normal. Judgment is not impulsive. documented in this encounter Plan of Treatment Scheduled Referrals Name Type Priority Associated Diagnoses Orde r Schedule AMB REFERRAL TO ADDICTION MEDICINE Outpatient Referral Routine Ordered: 11/24/2024 documented as of this encounter Goals Goal Patient Goal Type Associated Problems Recent Progress Patient-Stated? Author Blood Pressure < 140/90 Blood Pressure 122/70(12/06 8:04 AM EDT) No Iva Gonzalez MA Maintain a healthy diet, exercise regularly and maintain an ideal body weight General No Hannah Marshall RMA Will see Endocrinology by January 2023 General On track(2022 10:15 AM EDT) Yes Kate Shine RN Note: Will wear CGM to track glucose levels and use Dexcom Clarity so Endo/PCP can view blood sugars. 12/24/22 Endo appt on 01/26/23 Stay Tobacco Free Lifestyle No Hannah Marshall RMA To find myself again - Explore values work and self worth Care Plan Going back to old people No Araseli Lay LPCC documented as of this encounter Procedures Procedure Name Priority Date/Time Associated Diagnosis Comments POCT URINE DRUG SCREEN ICUP 14 Routine 11/24/2024 9:44 AM EDT Opiate abuse, episodic (HCC) Opioid dependence with opioid-induced disorder (HCC) COMPLIANCE OPIOID PANEL QUANT ONLY, URINE Routine 11/24/2024 9:44 AM EDT Opiate abuse, episodic (HCC) Opioid dependence with opioid-induced disorder (HCC) documented in this encounter Results * (ABNORMAL) COMPLIANCE OPIOID PANEL QUANT ONLY, URINE (11/24/2024 9:44 AM EDT) [facility] Medications Expected Buprenorphine 11/25/2024 4:06 PM EDT [facility]REF[facility] Hydrocodone <50 Cutoff 50 ng/mL ng/mL 11/25/2024 4:06 PM EDT [facility] Comment:e.g., Lorcet, Lortab , Vicodin, [place]; Minor Metabolite of Codeine Dihydrocodeine <50 Cutoff 50 ng/mL ng/mL 11/25/2024 4:06 PM EDT [facility] Comment:e.g., Didrate, Parzo ne, Parlor, Synalgos; Metabolite of Hydrocodone Norhydrocodone <50 Cutoff 50 ng/mL ng/mL 11/25/2024 4:06 PM EDT [facility] Comment:Metabolite of Hydroc odone Hydromorphone <50 Cutoff 50 ng/mL ng/mL 11/25/2024 4:06 PM EDT [facility] Comment:e.g., Dilaudid; also Metabolite of Hydrocodone and Minor Metabolite of Morphine Hydromorphone Glucuronide <50 Cutoff 50 ng/mL ng/mL 11/25/2024 4:06 PM EDT [facility] Comment:Metabolite of Hydrom orphone Oxycodone <50 Cutoff 50 ng/mL ng/mL 11/25/2024 4:06 PM EDT [facility] Comment:e.g., Oxycontin, Per cocet, Endocet, Percodan, Roxicet Noroxycodone <50 Cutoff 50 ng/mL ng/mL 11/25/2024 4:06 PM EDT [facility] Comment:Metabolite of Oxycod one Oxymorphone <50 Cutoff 50 ng/mL ng/mL 11/25/2024 4:06 PM EDT [facility] Comment:e.g., Opana; Metabol ite of Oxycodone Oxymorphone Glucuronide <50 Cutoff 50 ng/mL ng/mL 11/25/2024 4:06 PM EDT [facility] Comment:Metabolite of Oxycod one Noroxymorphone <50 Cutoff 50 ng/mL ng/mL 11/25/2024 4:06 PM EDT [facility] Comment:Metabolite of Oxycod one, and Oxymorphone, Noroxycodone Metabolite Tramadol <50 Cutoff 50 ng/mL ng/mL 11/25/2024 4:06 PM EDT [facility] Comment:e.g., Ultram, ConZip Y-Sbvvbarqz-vrw-Tra madol <50 Cutoff 50 ng/mL ng/mL 11/25/2024 4:06 PM EDT [facility] Comment:Metabolite of Tramad ol Codeine <50 Cutoff 50 ng/mL ng/mL 11/25/2024 4:06 PM EDT [facility] Comment:e.g., Acetaminophen w/Codeine, Tylenol3 w/ Codeine Codeine Glucuronide <50 Cutoff 50 ng/mL ng/mL 11/25/2024 4:06 PM EDT [facility] Comment:Metabolite of Codein e Meperidine <50 Cutoff 50 ng/mL ng/mL 11/25/2024 4:06 PM EDT [facility] Comment:e.g., Demerol, Pethi dine Normeperidine <50 Cutoff 50 ng/mL ng/mL 11/25/2024 4:06 PM EDT [facility] Comment:Metabolite of Meperi dine Morphine <50 Cutoff 50 ng/mL ng/mL 11/25/2024 4:06 PM EDT [facility] Comment:e.g., MS Contin, Carla anol; Metabolite of Codeine and Heroin; may reflect poppy seed ingestion Drrypovv-5-Lqblyrgc tha <25 Cutoff 25 ng/mL ng/mL 11/25/2024 4:06 PM EDT [facility] Comment:Metabolite of Morphi ne. Zvzekksg-1-Szlcxasf tha <25 Cutoff 25 ng/mL ng/mL 11/25/2024 4:06 PM EDT [facility] Comment:Metabolite of Morphi ne. Naloxone <25 Cutoff 25 ng/mL ng/mL 11/25/2024 4:06 PM EDT [facility] Comment:e.g., Narcan, Evzio Buprenorphine <5 Cutoff 5 ng/mL ng/mL 11/25/2024 4:06 PM EDT [facility] Comment:e.g., Suboxone, Subu angelina,Sublocade, Buprenex Buprenorphine Glucuronide 53(H) Cutoff 10 ng/mL ng/mL 11/25/2024 4:06 PM EDT [facility] Comment:Buprenorphine Metabo lite Norbuprenorphine 108(H) Cutoff 5 ng/mL ng/mL 11/25/2024 4:06 PM EDT [facility] Comment:Buprenorphine Metabo lite Norbuprenorphine Glucuronide >400(H) Cutoff 10 ng/mL ng/mL 11/25/2024 4:06 PM EDT [facility] Comment:Buprenorphine Metabo lite Fentanyl <1 Cutoff 1 ng/mL ng/mL 11/25/2024 4:06 PM EDT [facility] Comment:e.g.,Duragesic, Oral et, Actiq, Sublimaze, Innovar, Lazanda Norfentanyl <1 Cutoff 1 ng/mL ng/mL 11/25/2024 4:06 PM EDT [facility] Comment:Metabolite of Fentan yl 6-Monoacetylmorphin e (6MAM) <10 Cutoff 10 ng/mL ng/mL 11/25/2024 4:06 PM EDT [facility] Comment:Metabolite of Heroin ; Morphine is expected Methadone <50 Cutoff 50 ng/mL ng/mL 11/25/2024 4:06 PM EDT [facility] Comment:e.g., Dolophine, Met hadose, Amidone EDDP <50 Cutoff 50 ng/mL ng/mL 11/25/2024 4:06 PM EDT [facility] Comment:Methadone Metabolite Tapentadol <50 Cutoff 50 ng/mL ng/mL 11/25/2024 4:06 PM EDT [facility] Comment:Nucynta Tapentadol-Glucuron tha <50 Cutoff 50 ng/mL ng/mL 11/25/2024 4:06 PM EDT [facility] Comment:Metabolite of Tapent adol Urine Creatinine 224.0 mg/dL 11/26/19 25 4:06 PM EDT [facility] Comment: Greater than 20: Consistent with valid sample Greater than 2 but less than 20: Possible dilution Less than 2: Questionable valid sample Urine STRUCTURE OF URINARY TRACT PROPER / Unknown 11/24/2024 9:44 AM EDT 11/24/2024 9:44 AM EDT Narrative [facility] [employer], [facility] - 11/25/2024 4:06 PM EDT The absence of expected drug(s), and/or drug metabolite(s), may indicate non-compliance, diluted or adulterated urine, poor drug absorption, concentration of drug below the cut-off, timing of specimen collection relative to administration of drug, or limitations of testing. Specimens are held for 7 days. This test was developed, and its performance characteristics determined by [facility] ([facility]). It has not been cleared or approved by the FDA. This test is used for clinical purposes. It should not be regarded as investigational or for research. [facility] is certified under the Clinical Laboratory Improvement Amendments (CLIA) as qualified to perform high complexity clinical laboratory testing. Sacha Lambert MD URINE ORDERABLES Final Result Performing Organization Address City[facility]/ZIP Co de Phone Number [facility] [email or web address] [address], [place] [address] [facility] [address] [place], [place] [id number] * (ABNORMAL) POCT URINE DRUG SCREEN ICUP 14 (11/24/2024 9:44 AM EDT) Marijuana Metabolite Negative NG/ML [facility] Cocaine Metabolite Negative [facility]P OFF[facility] Morphine Urine neg NG/ML [facility] Methamphetamines Positive NG/ML [facility] Amphetamine Positive Indet/Pos /Neg [facility] Benzodiazepines Negative Indet/Pos /Neg [facility] Barbiturates Negative Indet/Pos /Neg [facility] Methadone Negative Indet/Pos /Neg [facility] Buprenorphine pos NG/ML [facility] Tricyclics, S Negative SEP OFFICE MDMA- Ecstasy (cutoff 200 ng/mL) neg SEP OFFICE Oxycodone Negative NG/ML [facility] Phencyclidine Negative SEP OFFICE PROPOXYPHENE Negative SEP OFFICE Lot Number SEP OFFICE Expiration Date SEP OFFICE SeriAl # SEP OFFICE 11/24/2024 9:44 AM EDT Sacha Lambert MD POINT OF CARE TEST ORDERABLES Final Result SEP OFF[facility] documented in this encounter Visit Diagnoses Diagnosis Opiate abuse, episodic (HCC)- Primary Opioid abuse, episodic Prediabetes Other abnormal glucose Bipolar affective disorder, current episode mixed, without psychotic features (HCC) Generalized anxiety disorder Opioid dependence with opioid-induced disorder (HCC) Unspecified drug-induced mental disorder documented in this encounter Discontinued Medications Medication Sig Discontinue Reason Start Date End Da te cariprazine (VRAYLAR) 1.5 mg Oral CapsuleIndications:Bip olar affective disorder, current episode mixed, without psychotic features (HCC) Take 1 Capsule by mouth daily. Dose adjustment 09/13/2024 11/24/2024 Blood-Glucose Meter [facility] KitIndications:Prediab etes Use to check blood glucose levels to monitor for hypoglycemic events Reorder 11/05/2023 11/24/[address] [facility] MiscIndications:Predia betes Daily as needed Reorder 11/05/2023 11/24/[address] [facility] StripIndications:Predi abetes [address] [facility].(Non-Drug; Combo Route) route daily as needed. Reorder 11/05/2023 11/24/2024 hydrOXYzine (ATARAX) 25 mg Oral TabletIndications:Bipo lar affective disorder, current episode mixed, without psychotic features (HCC) Take 1 Tablet by mouth 3 times daily as needed for Itching. Cancelled by 02/19/2024 11/24/2024 oxybutynin (DITROPAN-XL) 10 mg Oral Tablet Extended Rel 24 hrIndications:Stress incontinence of urine Take 1 Tablet by mouth daily. Cancelled by 10/22/2023 11/24/2024 VRAYLAR 3 mg Oral Capsule Take 3 mg by mouth nightly. at bedtime DELETE- Entered in Error 11/17/2024 11/24/2024 documented as of this encounter Historical Medications * This list may reflect changes made after this encounter. venlafaxine (EFFEXOR-XR) 37.5 mg Oral Capsule, Sust. Release 24 hr Take 37.5 mg by mouth daily. ondansetron (ZOFRAN) 4 mg Oral Tablet 11/09/2024 nicotine (NICODERM CQ) 21 mg/24 hr TD Patch 24 hr 10/15/2024 nalOXone (NARCAN) 4 mg/actuation Nasl [place], Non-Aerosol 09/27/2024 mirtazapine (REMERON) 15 mg Oral Tablet 10/04/2024 melatonin 5 mg Oral Tablet 10/19/2024 loratadine (CLARITIN) 10 mg Oral Tablet Take 10 mg by mouth daily. 11/08/2024 lisinopriL (PRINIVIL;ZESTRIL ) 10 mg Oral Tablet Take 10 mg by mouth daily. ibuprofen (ADVIL;MOTRIN) 800 mg Oral Tablet 10/02/2024 guanFACINE (TENEX) 1 mg Oral Tablet Take 1 mg by mouth nightly. cholecalciferol, vitamin D3, 25 mcg (1,000 unit) Oral Tablet Take 1,000 Units by mouth daily. aspirin-acetamino phen-caffeine (EXCEDRIN MIGRAINE) 250-250-65 mg Oral Tablet Take 1 Tablet by mouth. acetaminophen (TYLENOL) 500 mg Oral Tablet Take 500 mg by mouth 2 times daily as needed. 11/08/2024 VRAYLAR 3 mg Oral Capsule Take 3 mg by mouth nightly. at bedtime 11/17/2024 11/24/2024 buprenorphine-nal oxone (SUBOXONE) 2-0.5 mg SL Tablet, Sublingual 10/21/2024 12/06/2024 added in this encounter Additional Health Concerns Active Problems Noted Date Diagnosed Date Going back to old people 12/18/2022 Assessment Noted Time PHQ-9 Depression Total Score: 2 06/14/19 25 11:17 AM EST PHQ-2 Depression Total Score: 2 06/14/19 25 11:17 AM EST documented as of this encounter Care Teams Lard Tub Washer Relationship Specialty Start Date End Date Sacha Lambert MD [address] [place] [address] [place] [address] PCP - General Family Medicine 03/08/19 documented as of this encounter
--- OUTSIDE RECORDS SUMMARY | 2024-12-06 08:00 | XMS_ITS | Encounter Summary ---
Author Organization [place] [address] Care Team Providers Care Green Pipefitter Name Role Phone Sacha Lambert MD Primary Care Provider [phone] Reason for Visit * Reason Comments Other Patient is unable to get into rehab until December 16, and is needing medication to get her though until then Encounter Details Date Type Department Care Team (Late Contact Info) Description 12/06/2024 8:00 AM EDT Office Visit [facility]P [facility] [address] [place] [address] Sacha Lambert MD [address] [place] [address] [place] [address] Opioid use disorder (Primary Dx); Opiate abuse, episodic (HCC); Opioid dependence with opioid-induced disorder (HCC); Elevated blood sugar; Bipolar affective disorder, current episode mixed, without psychotic features (HCC) Social History Tobacco Use Types Packs/Day Years Used Date Smoking Tobacco: Every Day Cigarettes 1.5 21.6 Started: 05/18/2003 Smokeless Tobacco: Never Tobacco Cessation:Ready to Q uit: Not Asked; Counseling Given: Not Answered Comments:Currently Vaping Alcohol Use Standard Drinks/Week Comments No 0 (1 standard drink = 0.6 oz pur e alcohol) recovering; none since [facility] Utilities Answer Date Recorded In the past 12 months has [employer] electric, gas, oil, or water company threatened to shut off services in your home? No 06/14/2024 Overall Financial Resource Strain (CARDIA) Answe r Date Recorded How hard is it for you to pa y for the very basics like food, housing, medical care, and heating? Somewhat hard 06/14/2024 PHQ-2 Answer Date Recorded PHQ-2 Total Score 2 06/14/2024 [facility] - Occupational Stress [...] things needed for daily living? No 12/18/2022 [facility] IP Transportation Answer D ate Recorded In [...] Sign Reading Time Taken Comments Blood Pressure 122/70 12/06/2024 8:04 AM EDT Pulse 118 12/06/2024 8:04 AM EDT Temperature 36.7 C (98.1 F) 12/06/2024 8:04 AM EDT Respiratory Rate 18 12/06/2024 8:04 AM EDT Oxygen Saturation 97% 12/06/2024 8:04 AM EDT Inhaled Oxygen Concentration - - Weight 86.6 kg (191 lb) 12/06/2024 8:04 AM EDT Height 162.6 cm (5' 4 ) 12/06/2024 8:04 AM EDT Body Mass Index 32.79 12/06/2024 8:04 AM EDT documented in this encounter Functional [...] Entry Date Author No 05/19/2024 11:01 AM Patricio Partida RN documented in this encounter Ordered Prescriptions Prescription Sig Dispense Quantity Refills Last Filled Start Date End Date buprenorphine-nalox one (SUBOXONE) 8-2 mg SL FilmIndications:Opi oid use disorder,Opiate abuse, episodic (HCC),Opioid dependence with opioid-induced disorder (HCC) Place 1 Film under the tongue daily. 11 Each 12/06/2024 documented in this encounter Progress Notes * Sacha Lambert MD - 12/06/2024 8:00 AM EDTAssociated Problem(s): Opiate abuse, episodic (HCC) Orders: buprenorphine-naloxone (SUBOXONE) 8-2 mg SL Film; Place 1 Film under the tongue daily. * Sacha Lambert MD - 12/06/2024 8:00 AM EDTAssociated Problem(s): Bipolar affective disorder, current episode mixed, without psychotic features (HCC) Improving with higher dose of Vraylar but still having issues with negative symptoms and depressionsymptoms. Plans to establish care with psychiatry for further adjustments and management * Sacha Lambert MD - 12/06/2024 8:00 AM EDT Assessment & Plan Opioid use disorder Orders: buprenorphine-naloxone (SUBOXONE) 8-2 mg SL Film; Place 1 Film under the tongue daily. Has appointment to establish care with [facility] on December 16, 2024. She has been out of buprenorphine for going on 2 days and is having symptoms of withdrawal. Given additional buprenorphine prescription to cover her until she establishes care with [facility] on December 16, total of 11 films sent to her pharmacy. She does have Narcan at home per previous discussion. She has plan to establish care with psychiatry as well. She does feel like her moods improved with the higher dose of Vraylar but is still having a lot of negative thoughts and issues with depression. She denies any relapse or substance use since our last visit together Opiate abuse, episodic (HCC) Orders: buprenorphine-naloxone (SUBOXONE) 8-2 mg SL Film; Place 1 Film under the tongue daily. Opioid dependence with opioid-induced disorder (HCC) Orders: buprenorphine-naloxone (SUBOXONE) 8-2 mg SL Film; Place 1 Film under the tongue daily. Elevated blood sugar Orders: HEMOGLOBIN A1C; Future Reports elevated blood sugar readings at home sometimes as high as 200. Will check A1c to evaluate for prediabetes versus diabetes and consider starting metformin depending on A1c result Bipolar affective disorder, current episode mixed, without psychotic features (HCC) Improving with higher dose of Vraylar but still having issues with negative symptoms and depressionsymptoms. Plans to establish care with psychiatry for further adjustments and management Progress Note: Vitals: 12/06/24 0804 BP: 122/70 Pulse: 118 Resp: 18 Temp: 98.1 ??F (36.7 ??C) TempSrc: Temporal SpO2: 97% Weight: 191 lb (86.6 kg) Height: 5' 4 (1.626 m) Body mass index is 32.79 kg/m??. SUBJECTIVE: Chief Complaint Patient presents with Other Patient is unable to get into rehab until December 16, and is needing medication to get her though until then HPI: She is here today following up for history of opioid dependency and substance use disorder. She hasan appointment to schedule to establish care with [facility] on December 16, 2024. However she is out of her buprenorphine prescription as of yesterday. This is her second day without buprenorphine and she is having withdrawal symptoms including nausea, chills, and bodyaches. She wants to continue on buprenorphine until she establishes care with [facility] for further evaluation management and counseling. She does feel stable in her sobriety overall and was not having any withdrawal symptoms onher previous dose of 8/2 Suboxone 1 film daily. She feels like her depression symptoms have improved with higher dose of Vraylar but plans to establish care with a psychiatrist for further evaluation and management given her persistent negative symptoms and depression She also reports elevated blood sugar readings at home sometimes as high as 200. She does have a history of prediabetes but has not had an A1c checked in over a year. She is concerned that her blood sugar may be a little bit uncontrolled. She does feel somewhat jittery and shaky when her sugars arerunning high. The lowest sugar she was seen on her monitor was 79. Review of Systems Constitutional: Positive for fatigue. Negative for activity change and diaphoresis. Psychiatric/Behavioral: Positive for dysphoric mood and sleep disturbance. Negative for confusion, decreased concentration and suicidal ideas. The patient is not nervous/anxious. OBJECTIVE: Physical Exam Vitals reviewed. Constitutional: [...] oriented to person, place, and time. Psychiatric: Attention and Perception: Attention normal. Mood and Affect: Mood is anxious. Affect is not tearful. Behavior: Behavior normal. Behavior is not agitated, aggressive or hyperactive. Thought Content: Thought content normal. Thought content is not paranoid. Thought content does not include homicidal or suicidal ideation. Judgment: Judgment normal. documented in this encounter Plan of Treatment Scheduled Orders Name Type Priority Associated Diagnoses Orde r Schedule HEMOGLOBIN A1C Lab Routine Elevated blood sugar 1 Occurrences starting 12/06/2024 until 12/06/2025 documented as of this encounter Goals Goal [...] Lay LPCC documented as of this encounter Visit Diagnoses Diagnosis Opioid use disorder- Primary Opiate abuse, episodic (HCC) Opioid abuse, episodic Opioid dependence with opioid-induced disorder (HCC) Unspecified drug-induced mental disorder Elevated blood sugar Other abnormal glucose Bipolar affective disorder, current episode mixed, without psychotic features (HCC) documented in this encounter Discontinued Medications Medication Sig Discontinue Reason Start Date End Da te buprenorphine-naloxone (SUBOXONE) 2-0.5 mg SL Tablet, Sublingual DELETE- Entered in Error 10/22/19 25 12/06/2024 documented as of this encounter Additional Health Concerns Active Problems Noted Date Diagnosed Date Going back to old people 12/18/2022 Assessment Noted Time PHQ-9 Depression Total Score: 2 06/14/19 11:17 AM EST PHQ-2 Depression Total Score: 2 06/14/19 11:17 AM EST documented as of this encounter Care Teams Green Pipefitter Relationship Specialty Start Date End Date Sacha Lambert MD [address] [place] [address] [place] [address] PCP - General Family Medicine 03/08/19 documented as of this encounter
[2024-12-21 20:33] VITALS: BP 152/97; PULSE 125; RESP 20; TEMP 36.9; O2SAT 98; BMI 34.3
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
[2024-12-21] MEDS: LACTATED RINGERS 1000ML 1,000 ML 999 ML IV (20:49)
[2024-12-21] MEDS: KETOROLAC 30MG/ML VIAL 15 MG IV (20:49)
[2024-12-21] MEDS: METOCLOPRAMIDE HCL 10MG/2ML VIAL 10 MG IVP (20:49)
[2024-12-21] MEDS: ACETAMINOPHEN 500MG TAB 1000 MG PO (20:50)
--- OUTSIDE RECORDS SUMMARY | 2024-12-21 20:51 | XMS_ITS | Clinical Summary ---
Author Organization [facility] Address [address] [place] [address] Care Team Providers Care Transcriptionist Name Role Phone Unavailable Primary Care Provider Unavailabl e Social History Tobacco Use Types Packs/Day Years Used Date Smoking Tobacco: Never Assessed Comments Unknown Sex and Gender Information Value Date Recorded Sex Assigned at Not on file Legal Sex Female 7:54 PM EDT Gender Identity Not on file Sexual Orientation Not on file Plan of Treatment Health Maintenance Due Date Last Done Comments [facility]-Depression Screening 1990 [facility]-/Child/Adol SDOH Screenings 1990 [facility]-Varicella Vaccines (1 of 2 - 13+ 2-dose series) 2003 HPV Vaccines (1 - 3-dose series) 2005 [facility]- SDOH Screenings 2008 [facility]-Adult SDOH Screenings 2008 [facility]-DTaP,Tdap,and Td Vaccine s (1 - Tdap) 2009 [facility]-Hepatitis B Vaccines (1 of 3 - 19+ 3-dose series) 2009 [facility]-Pap Smear 2011 [facility]-Cervical Cancer Screening 2020 [facility]-HPV/Cotest 2020 [id number] Vaccine (1 - 20 24-25 season) 2024 [facility]-Influenza Vaccine (#1) 2025 [facility]-Zoster Vaccines (1 of 2) 2040 [facility]-HIB Vaccines Aged Out No longer e ligible based on patient's age to complete this topic [facility]-Hepatitis A Vaccines Aged Out No longer eligible based on patient's age to complete this topic [facility]-IPV Vaccines Aged Out No longer e ligible based on patient's age to complete this topic [facility]-Pneumococcal Vaccine: Pediatrics (0 to 5 Years) and At-Risk Patients (6 to 49 Years) Aged Out No long er eligible based on patient's age to complete this topic [facility]-Rotavirus Vaccines Aged Out No lo nger eligible based on patient's age to complete this topic
--- OUTSIDE RECORDS SUMMARY | 2024-12-21 20:51 | XMS_ITS | Encounter Summary ---
Author Organization [facility] Address [address] [place] [address] Care Team Providers Care Wire Drawing Setter Name Role Phone Andres Armendariz MD Primary Care Provid er Encounter Details Date Type Department Care Team (Latest Contact Info) Description 11/18/2024 Travel Social History Tobacco Use Types Packs/Day Years [...] on file documented as of this encounter Functional Status * Calculated C-SSRS Risk Score (Lifetime/Recent) Answer Date of Assessment Author No Risk Indicated 11/18/2024 6:07 PM EDT Diana Chacon RN * [place] Suicide Severity Rating Scale (Screener/Recent Self-Report) Question Answer Date of Assessment Author 1. Wish to be (Past 1 Month) No 025 6:07 PM EDT Diana Akbar RN 2. Non-Specific Active Suici benedicto Thoughts (Past 1 Month) No 11/18/2024 6:07 PM EDT Paul Akbar RN 6. Suicidal Behavior (Lifetime) No 6:07 PM EDT Diana Akbar RN documented as of this encounter Plan of Treatment Not on file documented as of this encounter Visit Diagnoses Not on filedocumented in this encounter Care Teams Wire Drawing Setter Relationship Specialty Start Date End Date Andres Armendariz MD [address] [place] [address] PCP - General Preventative Medicine 11/18/24 documented as of this encounter
--- OUTSIDE RECORDS SUMMARY | 2024-12-21 20:51 | XMS_ITS | Encounter Summary ---
Author Organization [place] [address] Care Team Providers Care Administrative Executive Name Role Phone Sacha Lambert MD Primary Care Provider [phone] Reason for Visit * Reason Onset Date Comments Appointment Needed 12/01/2024 Encounter Details Date Type Department Care Team (Late st Contact Info) Description 12/01/2024 Telephone SEP Aime [address] [place] [address] Sacha Lambert MD [address] [place] [address] [place] [address] Appointment Needed Social History Tobacco Use Types Packs/Day Years Used Date Smoking Tobacco: Every Day Cigarettes 1.5 21.6 Started: 05/18/2003 Smokeless Tobacco: Never Comments:Currently Vaping Alcohol Use Standard Drinks/Week Comments No 0 (1 standard drink = 0.6 oz pur e alcohol) recovering; none since [facility] Utilities Answer Date Recorded In the past 12 months has e electric, gas, oil, or water company threatened to shut off services in your home? No 06/14/2024 Overall Financial Resource Strain (CARDIA) Answe r Date Recorded How hard is it for you to pa y for the very basics like food, housing, medical care, and heating? Somewhat hard 06/14/2024 PHQ-2 Answer Date Recorded PHQ-2 Total Score 2 06/14/2024 [facility] Occupat [facility] - Occupational Stress [...] things needed for daily living? No 12/18/2022 [facility] IP Transportation Answer D ate Recorded [...] as of this encounter Functional Status * Is the person deaf or does he/she have serious difficulty hearing? Answer Date of Assessment Author No 05/19/2024 11:01 AM Patricio Partida RN * Is the person blind or does he/she have serious difficulty seeing even when wearing glasses? Answer Date of Assessment Author No 05/19/2024 11:01 AM Patricio Partida, ESVIN * Does this person have serious difficulty walking or climbing stairs? Answer Date of Assessment Author No 05/19/2024 11:01 AM Patricio Partida, RN * Does this person have difficulty dressing or bathing? Answer Date of Assessment Author No 05/19/2024 11:01 AM Patricio Partida, RN * Because of a physical, mental [...] Patricio Partida RN documented in this encounter Miscellaneous Notes * Telephone Encounter - Kacie Shah RMA - 12/01/2024 9:07 AM EDT Pt needs to reschedule appt , lmtcb documented in this encounter Plan of Treatment Not on file documented as of this encounter Goals Goal [...] Diagnoses Not on filedocumented in this encounter Additional Health Concerns Active Problems Noted Date Diagnosed Date Going back to old people 12/18/2022 Assessment Noted Time PHQ-9 Depression Total Score: 2 06/14/19 25 11:17 AM EST PHQ-2 Depression Total Score: 2 06/14/19 25 11:17 AM EST documented as of this encounter Care Teams Administrative Executive Relationship Specialty Start Date End Date Sacha Lambert MD [address] [address] [place], [place] [address] PCP - General Family Medicine 03/08/19 documented as of this encounter
--- OUTSIDE RECORDS SUMMARY | 2024-12-21 20:51 | XMS_ITS | Encounter Summary ---
Author Organization [place] [address] Care Team Providers Care Oil And Gas Well Treatment Operator Name Role Phone Sacha Lambert MD Primary Care Provider [phone] Reason for Visit * Reason Onset Date Comments Symptoms (Only Use If Pt Pus hes Back On Scheduling A Visit) 09/06/2024 Staph infection on face Encounter Details Date Type Department Care Team (Late st Contact Info) Description 09/06/2024 Telephone SEP Aime [address] [place] [address] Sacha Lambert MD [address] [place] [address] [place] [address] Symptoms (Only Use If Pt Pushes Back On Scheduling A Visit) (Staph infection on face) Social History Tobacco Use Types Packs/Day Years Used Date Smoking Tobacco: Every Day Cigarettes 1.5 21.6 Started: 05/18/2003 Smokeless Tobacco: Never Comments:Currently Vaping Alcohol Use Standard Drinks/Week Comments No 0 (1 standard drink = 0.6 oz pur e alcohol) recovering; none since [facility] Utilities Answer Date Recorded In the past 12 months has e electric, gas, oil, or water company threatened to shut off services in your home? No 06/14/2024 Overall Financial Resource Strain (CARDIA) Lisa r Date Recorded How hard is it for you to pa y for the very basics like food, housing, medical care, and heating? Somewhat hard 06/14/2024 PHQ-2 Answer Date Recorded PHQ-2 Total Score 2 06/14/2024 [facility] - Occupational Stress Questionnaire Answer Date Recorded [...] things needed for daily living? No 12/18/2022 [facility] IP Transportation Answer D ate Recorded In [...] 05/19/2024 11:01 AM Patricio Partida, ESVIN * Is the person blind or does he/she have serious difficulty seeing even when wearing glasses? Answer Date of Assessment Author No 05/19/2024 11:01 AM Patricio Partida, RN * Does this person have serious [...] Telephone Encounter - Kacie Shah RMA - 09/06/2024 4:32 PM EDT Pt notified * Telephone Encounter - Sacha Lambert MD - 09/06/2024 4:29 PM EDT I sent in an antibiotic for her skin infection on her face. Would recommend that she come into the office for an evaluation/appointment tomorrow if possible * Telephone Encounter - Rachna Ramirez MA - 09/06/2024 3:42 PM EDT Please advise. thank you * Telephone Encounter - Reji Garg CCMA - 09/06/2024 3:31 PM EDT Select the most appropriate reason for this telephone message: Symptoms Call Who is reporting the symptoms: Patient What symptom(s) is the patient experiencing: staph infection on face How long have symptoms been present: today Has the patient been seen for this:Yes Has the patient tried anything to relieve the symptoms and did it help: No If pain, what level on scale 1-10 (10 being the greatest): 8 Desired Outcome: Advice - pharmacy is out of body wash that is otc that Dr. Zia Lambert has advised in the past. Pharmacy & Location:[facility] Method of Communication: Phone Call Was patient transferred to Nurse Triage for additional help? N/A Additional Information: N/A documented in this encounter Plan of Treatment [...] On track(2022 10:15 AM EDT) Yes Kate Shine, RN Note: Will wear CGM to track [...] documented as of this encounter Care Teams Oil And Gas Well Treatment Operator Relationship Specialty Start Date End Date Sacha Lambert MD [address] [place] [address] [address] [place], [place] [address] PCP - General Family Medicine 03/08/19 documented as of this encounter
--- OUTSIDE RECORDS SUMMARY | 2024-12-21 20:51 | XMS_ITS | Clinical Summary ---
Author Organization [facility] Address [address] [place] [address] Care Team Providers Care Feather Drying Machine Operator Name Role Phone Andres Armendariz MD Primary Care Provid er Allergies Active Allergy Reactions Criticality Noted Date Comments Hydrocodone Anaphylaxis High 11/18/2024 Bupropion Other (See Comments) 11/18/2024 SI Medications polyethylene glycol (MiraLax) 17 g packet Take 17 g by mouth Daily. Active cetirizine (zyrTEC) 5 MG tablet Take 1 tablet by mouth Daily. Active lisinopril (PRINIVIL,ZESTR IL) 10 MG tablet Take 1 tablet by mouth Daily. Active Cholecalciferol 25 MCG (1000 UT) tablet Take 1 tablet by mouth Daily. Active buprenorphine-n aloxone (SUBOXONE) 8-2 MG per SL tablet Place 1 tablet under the tongue Daily. Active Cariprazine HCl (Vraylar) 3 MG capsule capsule Take 1 capsule by mouth Daily. Active guanFACINE (TENEX) 1 MG tablet Take 1 tablet by mouth Every Night. Active venlafaxine XR (EFFEXOR-XR) 37.5 MG 24 hr capsule Take 1 capsule by mouth Daily. Active aspirin-acetami nophen-caffeine (EXCEDRIN MIGRAINE) 250-250-65 MG per tablet Take 1 tablet by mouth Every 6 (Six) Hours As Needed for Headache. Active Encounters Date Type Department Care Team Description 11/18/2024 5:43 PM EDT - 11/18/2024 7:57 PM EDT Emergency [facility] [address] [place] [address] Catracho Cheung MD Bell, Todd, Other migraine with status migrainosus, not intractable (Primary Dx) Discharge Disposition: Home or Self Care 11/18/2024 Travel from Last 3 Months Social History Tobacco Use Types Packs/Day Years Used Date Smoking Tobacco: Never Assessed Abuse Screen Answer Date Recorded Feels Unsafe at Home or Work/School no 11/18/2024 Feels Threatened by Someone no 0708/2024 Does Anyone Try to Keep You From Having Contact with Others or Doing Things Outside Your Home? no 11/18/2024 Physical Signs of Abuse Present no 11/18/2024 Comments No Sex and Gender Information Value Date Recorded Sex Assigned at Not on file Legal Sex Female 5:31 PM EDT Gender Identity Not on file Sexual Orientation Not on file Last Filed Vital Signs Vital Sign Reading [...] Mass Index 35.19 11/18/2024 5:46 PM EDT Plan of Treatment Health Maintenance Due Date Last Done Comments ANNUAL PHYSICAL 1990 Annual Gynecologic Pelvic an d Breast Exam 1990 HEPATITIS C SCREENING 1990 COVID-19 Vaccine (3 - 2023-2 5 season) 2024 07/15/2022, 01/01/2021 INFLUENZA VACCINE 02/15/2025 01/29/2024, 02/16/2020 TDAP/TD VACCINES (4 - Td or Tdap) 01/19/2034 01/20/2024, 01/21/2023, 10/23/2004 Pneumococcal Vaccine 0-49 Aged Out No longer eligible based on patient's age to complete this topic Insurance [facility] [place]ICAID [place] Care Teams Feather Drying Machine Operator Relationship Specialty Start Date End Date Andres Armendariz MD [address] [place] [address] PCP - General Preventative Medicine 11/18/24
--- OUTSIDE RECORDS SUMMARY | 2024-12-21 20:51 | XMS_ITS | Encounter Summary ---
Author Organization [place] [address] Care Team Providers Care Leisure Studies Professor Name Role Phone Sacha Lambert MD Primary Care Provider [phone] Encounter Details Date Type Department Care Team (Late st Contact Info) Description 09/16/2024 Results Follow-Up SEP Aime [facility] [place] [address] Sacha Lambert MD [address] [place] [address] [place] [address] WOUND CULTURE (STAIN INCLUDED) Social History Tobacco Use Types Packs/Day Years Used Date Smoking Tobacco: Every Day Cigarettes 1.5 21.6 Started: 05/18/2003 Smokeless Tobacco: Never Comments:Currently Vaping Alcohol Use Standard Drinks/Week Comments No 0 (1 standard drink = 0.6 oz pur e alcohol) recovering; none since [facility] Utilities Answer Date Recorded In the [...] Date Recorded PHQ-2 Total Score 2 06/14/2024 [facility] of Occupat ional Health - Occupational Stress [...] things needed for daily living? No 12/18/2022 [facility] IP Transportation Answer D ate Recorded In [...] 05/19/2024 11:01 AM Patricio Partida, ESVIN * Because of a physical, mental or [...] Patricio Partida RN documented in this encounter Progress Notes * Sacha Lambert MD - 09/16/2024 8:48 AM EDT The antibiotic prescribed should clear the infection. Please complete the full course of antibiotics. documented in this encounter Plan of Treatment [...] documented as of this encounter Care Teams Leisure Studies Professor Relationship Specialty Start Date End Date Sacha Lambert MD [address] [place] [address] [address] [place], [place] [address] PCP - General Family Medicine 03/08/19 documented as of this encounter
--- OUTSIDE RECORDS SUMMARY | 2024-12-21 20:51 | XMS_ITS | Encounter Summary ---
Author Organization [place] [address] Care Team Providers Care Hardware Design Engineer Name Role Phone Sacha Lambert MD Primary Care Provider [phone] Reason for Visit * Reason Onset Date Comments Other 11/24/2024 calling to say stella kessler can't get pt in until December 16. Encounter Details Date Type Department Care Team (Late Contact Info) Description 11/24/2024 Telephone SEP Aime [facility] [place] [address] Sacha Lambert MD [address] [place] [address] [place] [address] Other (calling to say am[facility] can't get pt in until December 16. ) Social History Tobacco Use Types Packs/Day Years Used Date Smoking Tobacco: Every Day Cigarettes 1.5 21.6 Started: 05/18/2003 Smokeless Tobacco: Never Comments:Currently Vaping Alcohol Use Standard Drinks/Week Comments No 0 (1 standard drink = 0.6 oz pur e alcohol) recovering; none since [facility] Utilities Answer Date Recorded In the [...] Date Recorded PHQ-2 Total Score 2 06/14/2024 [facility] [place] [facility] - Occupational Stress [...] things needed for daily living? No 12/18/2022 [facility] IP Transportation Answer D ate [...] Telephone Encounter - Kacie Shah RMA - 11/25/2024 8:25 AM EDT Pt notified , appt made * Telephone Encounter - Sacha Lambert MD - 11/25/2024 8:04 AM EDT She should make a follow-up appointment with me in 7 to 10 days so we can continue on her buprenorphine at the current dose until she can establish care with [facility] in December. Would recommend that they take the December 16 appointment but I will continue her buprenorphine medication until she is able to be seen by them * Telephone Encounter - Kacie Shah RMA - 11/24/2024 1:32 PM EDT FYI * Telephone Encounter - Nir Portillo - 11/24/2024 1:24 PM EDT Select the most appropriate reason for this telephone message: Other Who is calling (name & relationship to patient if not the patient): pt mother What is needed OR why are they calling: calling to say [facility] can't get pt in until December 16. When is this needed by: keiry Where does this information need to go: pcp Return Method of Communication: Phone Call Additional information:N/A documented in this encounter Plan of Treatment [...] documented as of this encounter Care Teams Hardware Design Engineer Relationship Specialty Start Date End Date Sacha Lambert MD [address] [place] [address] [address] [place], [place] [address] PCP - General Family Medicine 03/08/19 documented as of this encounter
--- OUTSIDE RECORDS SUMMARY | 2024-12-21 20:51 | XMS_ITS ---
Care Plan Created on: December 21, 2024 Yarely Parra : 1990 Sex: Female Author Organization [facility] Address [address] [place] [id number] Care Team Providers Care Property Worker Name Role Phone Sacha Lambert MD Primary Care Provider [phone] Active Problems * This document contains information received from the source organization and may not represent a complete record from that organization. Problem Noted Date Diagnosed Date Sepsis 06/14/2024 Assessment & Plan (06/17/2024 5:28 PM EST): Resolved UA negative Blood cx negative Source is facial abscess Received iv vanc inpatient Assessment & Plan (06/16/2024 12:55 PM EST): Resolved UA negative Blood cx pending Source is facial abscess Start vanc Assessment & Plan (06/15/2024 1:15 PM EST): Resolved UA negative Blood cx pending Source is facial abscess Continue iv abx Assessment & Plan (06/14/2024 1:16 PM EST): Check ua, blood cultures Continue iv abx Start fluids Hold lisinopril and hctz Prediabetes 06/14/2024 Assessment & Plan (06/17/2024 5:28 PM EST): A1c 5.7 Tight sugar control with SSI given infection Assessment & Plan (06/16/2024 8:53 AM EST): A1c 5.7 Tight sugar control with SSI given infection Assessment & Plan (06/15/2024 9:57 AM EST): A1c 5.7 Tight sugar control with SSI given infection Assessment & Plan (06/14/2024 1:16 PM EST): A1c 5.7 Tight sugar control with SSI given infection Facial cellulitis 06/13/2024 Assessment & Plan (06/17/2024 5:28 PM EST): Noted CT face and orbits There is sparing of the left orbit per CT and no evidence of orbital cellulitis ENT consulted S/p I&D 06/15 Concern for MRSA abscess per them Vanc inpatient Dc with bactrim Close f/u with ENT Assessment & Plan (06/16/2024 12:55 PM EST): Noted CT face and orbits There is sparing of the left orbit per CT and no evidence of orbital cellulitis ENT consulted S/p I&D 06/15 Concern for MRSA abscess per them Dc unasyn and start vanc Follow up on cultures sent yesterday Assessment & Plan (06/15/2024 1:15 PM EST): Noted CT face and orbits There is sparing of the left orbit per CT and no evidence of orbital cellulitis ENT consulted Discussed with ENT PA She will be doing I&D today Assessment & Plan (06/14/2024 1:16 PM EST): Noted CT face and orbits There is sparing of the left orbit per CT and no evidence of orbital cellulitis However extensive facial cellulitis ENT consulted Recommend continuing iv abx for now Facial swelling 05/16/2024 IFG (impaired fasting glucose) 01/26/2023 Reactive hypoglycemia 01/26/2023 Prediabetes 12/18/2022 Assessment & Plan (11/24/2024 10:13 AM EDT): Orders: Blood Sugar Diagnostic Misc Strip; 1 Strip by Misc.(Non-Drug; Combo Route) route daily as needed. Blood-Glucose Meter Misc Kit; Use to check blood glucose levels to monitor for hypoglycemic events Lancets Mis Misc; Daily as needed Assessment & Plan (04/11/2024 8:59 AM EST): Orders: HEMOGLOBIN A1C; Future TSH REFLEX; Future COMPREHENSIVE METABOLIC PANEL; Future Vitamin D deficiency 12/18/2022 Arm mass, left 10/23/2020 Overview (10/23/2020): Added automatically from request for surgery [id number] Generalized anxiety disorder 04/24/2020 Assessment & Plan (11/24/2024 10:13 AM EDT): Anxiety not well-controlled today, will add on BuSpar to regiment Orders: busPIRone (BUSPAR) 10 mg Oral Tablet; Take 1 Tablet by mouth 2 times daily. Assessment & Plan (06/17/2024 5:28 PM EST): Continue hydroxyzine Assessment & Plan (06/16/2024 8:53 AM EST): Continue hydroxyzine Assessment & Plan (06/15/2024 9:57 AM EST): Continue hydroxyzine Assessment & Plan (06/14/2024 1:16 PM EST): Continue hydroxyzine Migraine with aura and witho ut status migrainosus, not intractable 02/28/2020 Severe opioid dependence 05/02/2019 Overview (08/29/2019): Substance use Hx: (type, quant, route): percocet pill, snorted Frequency: 7 a day How lon years Longest sobriety: 60 days Progression: Last exposure: 02-03-19 (type, quant, route): Meth, smoked, 1 gram Frequency: 10 times a day How lon year Longest sobriety: 60 days Progression: Last exposure: History of substance use related seizures: no Substances: (Tolerance: A state of adaptation in which exposure to a drug induces changes that result in diminution of one or more of the drug's effects over time.) Evidence of tolerance to any substance: no Substances: (Dependence: A state of adaptation that is manifested by a drug class specific withdrawal syndrome that can be produced by abrupt cessation, rapid dose reduction, decreasing blood level of the drug, and / or administration of an antagonist.) Evidence of dependence to any substance: no and yes Substances: (Substance abuse: A maladaptive pattern of substance use leading to clinically significant impairment or distress, as manifested by one or more of the following, occuring with in a 12-month period: 1. Recurrent substance use resulting in a failure to fulfill major role obligations at work, school, or home. 2. Recurrent substance use in situations in which it is physically hazardous. 3. Recurrent substance- related legal problems. 4. Continued substance use despite having persistent or recurrent social or interpersonal problems caused or exacerbated by the effects of the substance. Evidence of substance abuse: no and yes Substances: Evidence of opioid use disorder: no and yes (if yes insert DSM5 check list) History of opioid withdrawal: no and yes (If yes insert DSM5 criteria) History of overdose: no Substances: Treatment history: (inpatient / outpatient, MAT, 12 steps, location, dates) Inpatient 12 steps program 02-03-19. She went to [facility] to 03/05/19 Consequences of drug use: Loss of family, health, money and a job. How is pt feeling? Depressed Currently intoxicated? (if yes list symptomology): no Insight, motivation, readiness to change? yes Stage of change (precontemplative, contemplative, preparative, action, maintenance, relapse): yes Past psychiatric history: (Dx, duration, course, treatment): Depression and anxiety Previous psych hospital admissions: no Physical abuse hx: no Mood sympotms Depression: no and yes Anxiety: no and yes Insomnia: no and yes Rapid thoughts: no and yes Difficulty with focus: no and yes Forgetfulness: no and yes Crying spells: no and yes Anger control issues: no and yes Mood swings: no and yes Palpitatons: yes SOB: no Nausea: no and yes Appetite change: no and yes Panic attacks: no and yes HSI: no AVH: no Thoughts of : no and yes Despair: no Anhedonia: no TP: linear, TC: logical, mood: , affect: Congruent Sexual history: Sexually active: yes Length of time with current partner: 12 years Number of partners in lifetime: 2 Practices safe sex: no and yes High risk sexual behavior? no STD hx: no Any current STD symptoms: no Sexual abuse hx: no Social recovery environment: Living situation: Living with her mother Family / social support: Her mom and brothers. Relationships: (Single / / / ): single Children: 2 she has a son who is 6 and a daughter who is 2. Problems at school or work? no Relational problems with spouse or children? yes Involvement in violence? no Legal charges for public intox, altercations, possession or DUI? no Financial problems? no Partner with substance use disorder? yes School hx: Graduated high school and is attending college now. 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 Last menstrual period and risk of (for female patients): No results found for this visit on 04/04/19. Patients past medical, family and social histories were reviewed and updated. There were no changes except as noted. DSMV Opioid Use Disorder diagnostic criteria Opioid Use Disorder requires at least 2 criteria be met within a 12 month period 1. Opioids are often taken in larger amounts or over a longer period of time than intended. yes 2. There is a persistent desire or unsuccessful efforts to cut down or control opioid use. yes 3. A great deal of time is spent in activities necessary to obtain the opioid, use the opiod, or recover from its effects. yes 4. Craving, or a strong desire to use opioids. yes 5. Recurrent opioid use resulting in failure to fulfill major role obligations at work, school, or home. yes 6. Continued opioid use despite having persistent or recurrent social or interpersonal problems caused or exacerbated by the effects of opioids. yes 7. Important social, occupational or recreational activities are given up or reduced because of opioid use. yes 8. Recurrent opioid use in situations in which it is physically hazardous. no 9. Continued use despite knowledge of having a persistent or recurrent physical or psychological problem that is likely to have been caused or exacerbated by opioids. yes 10. * Tolerance as defined by either of the following: A. A need for markedly increased amounts of opiods to achieve intoxication or desired effect. yes B. Markedly diminished effect with continued use of the same amount of an opioid. yes 11. * Withdrawal, as manifested by either of the following: A. The characteristic opioid withdrawal syndrome. yes B. The same (or a closely related) substance are taken to relieve or avoid withdrawal symptoms. yes * This criterion is not considered to be met for those individuals taking opioids solely under appropriate medical supervision. Severity: Mild: 2-3 symptoms, Moderate: 4-5 symptoms, Severe: 6 or more symptoms Total: 10 Assessment & Plan (11/24/2019 2:56 PM EDT): Last injection about 2 month ago. Has not been able to get in to office because she has a new job and working. Has been taking oral naltrexone. Able to maintain sobriety. 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 Given naltrexone IM and encouraged 28 day followup Assessment & Plan (08/29/2019 4:35 PM EDT): Has been able to maintain sobriety. Staying busy at work. Biggest concern is for increased cravings about 3 weeks after injection. Took the oral naltrexone daily during the cravings and that does help. Will continue this plan. Encouraged NA meetings online has all in person meetings have ceased. Follow-up 28 days or sooner as needed. Opiate abuse, episodic 04/04/2019 Overview (04/04/2019): Substance use Hx: (type, quant, route): percocet pill, snorted Frequency: 7 a day How lon years Longest sobriety: 60 days Progression: Last exposure: 02-03-19 (type, quant, route): Meth, smoked, 1 gram Frequency: 10 times a day How lon year Longest sobriety: 60 days Progression: Last exposure: History of substance use related seizures: no Substances: (Tolerance: A state of adaptation in which exposure to a drug induces changes that result in diminution of one or more of the drug's effects over time.) Evidence of tolerance to any substance: no Substances: (Dependence: A state of adaptation that is manifested by a drug class specific withdrawal syndrome that can be produced by abrupt cessation, rapid dose reduction, decreasing blood level of the drug, and / or administration of an antagonist.) Evidence of dependence to any substance: no and yes Substances: (Substance abuse: A maladaptive pattern of substance use leading to clinically significant impairment or distress, as manifested by one or more of the following, occuring with in a 12-month period: 1. Recurrent substance use resulting in a failure to fulfill major role obligations at work, school, or home. 2. Recurrent substance use in situations in which it is physically hazardous. 3. Recurrent substance- related legal problems. 4. Continued substance use despite having persistent or recurrent social or interpersonal problems caused or exacerbated by the effects of the substance. Evidence of substance abuse: no and yes Substances: Evidence of opioid use disorder: no and yes (if yes insert DSM5 check list) History of opioid withdrawal: no and yes (If yes insert DSM5 criteria) History of overdose: no Substances: Treatment history: (inpatient / outpatient, MAT, 12 steps, location, dates) Inpatient 12 steps program 02-03-19. She went to [facility] in [place] to 03/05/19 Consequences of drug use: Loss of family, health, money and a job. How is pt feeling? Depressed Currently intoxicated? (if yes list symptomology): no Insight, motivation, readiness to change? yes Stage of change (precontemplative, contemplative, preparative, action, maintenance, relapse): yes Past psychiatric history: (Dx, duration, course, treatment): Depression and anxiety Previous psych hospital admissions: no Physical abuse hx: no Mood sympotms Depression: no and yes Anxiety: no and yes Insomnia: no and yes Rapid thoughts: no and yes Difficulty with focus: no and yes Forgetfulness: no and yes Crying spells: no and yes Anger control issues: no and yes Mood swings: no and yes Palpitatons: yes SOB: no Nausea: no and yes Appetite change: no and yes Panic attacks: no and yes HSI: no AVH: no Thoughts of : no and yes Despair: no Anhedonia: no TP: linear, TC: logical, mood: , affect: Congruent Sexual history: Sexually active: yes Length of time with current partner: 12 years Number of partners in lifetime: 2 Practices safe sex: no and yes High risk sexual behavior? no STD hx: no Any current STD symptoms: no Sexual abuse hx: no Social recovery environment: Living situation: Living with her mother Family / social support: Her mom and brothers. Relationships: (Single / / / ): single Children: 2 she has a son who is 6 and a daughter who is 2. Problems at school or work? no Relational problems with spouse or children? yes Involvement in violence? no Legal charges for public intox, altercations, possession or DUI? no Financial problems? no Partner with substance use disorder? yes School hx: Graduated high school and is attending college now. 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 Last menstrual period and risk of (for female patients): No results found for this visit on 04/04/19. Patients past medical, family and social histories were reviewed and updated. There were no changes except as noted. DSMV Opioid Use Disorder diagnostic criteria Opioid Use Disorder requires at least 2 criteria be met within a 12 month period 1. Opioids are often taken in larger amounts or over a longer period of time than intended. yes 2. There is a persistent desire or unsuccessful efforts to cut down or control opioid use. yes 3. A great deal of time is spent in activities necessary to obtain the opioid, use the opiod, or recover from its effects. yes 4. Craving, or a strong desire to use opioids. yes 5. Recurrent opioid use resulting in failure to fulfill major role obligations at work, school, or home. yes 6. Continued opioid use despite having persistent or recurrent social or interpersonal problems caused or exacerbated by the effects of opioids. yes 7. Important social, occupational or recreational activities are given up or reduced because of opioid use. yes 8. Recurrent opioid use in situations in which it is physically hazardous. no 9. Continued use despite knowledge of having a persistent or recurrent physical or psychological problem that is likely to have been caused or exacerbated by opioids. yes 10. * Tolerance as defined by either of the following: A. A need for markedly increased amounts of opiods to achieve intoxication or desired effect. yes B. Markedly diminished effect with continued use of the same amount of an opioid. yes 11. * Withdrawal, as manifested by either of the following: A. The characteristic opioid withdrawal syndrome. yes B. The same (or a closely related) substance are taken to relieve or avoid withdrawal symptoms. yes * This criterion is not considered to be met for those individuals taking opioids solely under appropriate medical supervision. Severity: Mild: 2-3 symptoms, Moderate: 4-5 symptoms, Severe: 6 or more symptoms Total: 10 Assessment & Plan (12/06/2024 8:28 AM EDT): Orders: buprenorphine-naloxone (SUBOXONE) 8-2 mg SL Film; Place 1 Film under the tongue daily. Assessment & Plan (11/24/2024 10:13 AM EDT): Orders: POCT URINE DRUG SCREEN ICUP 14 [...] a 10-day supply of buprenorphine. Referred to [facility] for further addiction management and counseling services and continue avoid buprenorphine management. When she is stable in her sobriety will consider managing her buprenorphine here in the future but at this time she needs full early addiction management services including counseling group therapy to help achieve and maintain her sobriety -Patient reports she has ample Narcan at home Essential hypertension 03/08/2019 Assessment & Plan (06/17/2024 5:28 PM EST): Hold lisinopril and hctz on dc BP improved Assessment & Plan (06/16/2024 8:53 AM EST): Hold lisinopril and hctz BP improved Assessment & Plan (06/15/2024 1:15 PM EST): Hold lisinopril and hctz BP improved Assessment & Plan (06/14/2024 1:16 PM EST): Hold lisinopril and hctz Assessment & Plan (04/11/2024 8:59 AM EST): Hypertension at goal today continue current regimen follow-up BMP to monitor electrolytes and renal function Orders: Blood Pressure Test Kit-Medium [facility] Kit; [address] [facility].(Non-Drug; Combo Route) route daily. lisinopriL-hydrochlorothiazide (PRINZIDE;ZESTORETIC) 10-12.5 mg Oral Tablet; Take 1 Tablet by mouth daily. Insomnia, persistent 03/08/2019 Endometriosis 06/16/2018 Severe dysmenorrhea 06/16/2018 Bipolar affective disorder, current episode mixed, without psychotic features Overview (10/30/2021): Bipolar with mixed symptoms Restart wellbutrin and vraylar. Assessment & Plan (12/06/2024 8:28 AM EDT): Improving with higher dose of Vraylar but still having issues with negative symptoms and depression symptoms. Plans to establish care with psychiatry for further adjustments and management Assessment & Plan (11/24/2024 10:13 AM EDT): Bipolar symptoms not well-controlled today, will increase from 3 mg to 4.5 mg of Vraylar. Orders: cariprazine (VRAYLAR) 4.5 mg Oral Capsule; Take 1 Capsule by mouth daily. Assessment & Plan (09/13/2024 10:46 AM EDT): Depression symptoms/bipolar symptoms not well-controlled we will restart Vraylar as she did better with this medication then on multiple other medications in the past. Orders: cariprazine (VRAYLAR) 1.5 mg Oral Capsule; Take 1 Capsule by mouth daily. Assessment & Plan (06/17/2024 5:28 PM EST): Continue hydroxyzine Not on any other meds per DRUG ENFORCEMENT AGENT meds Assessment & Plan (06/16/2024 8:53 AM EST): Continue hydroxyzine Not on any other meds per DRUG ENFORCEMENT AGENT meds Assessment & Plan (06/15/2024 9:57 AM EST): Continue hydroxyzine Not on any other meds per DRUG ENFORCEMENT AGENT meds Assessment & Plan (06/14/2024 1:16 PM EST): Continue hydroxyzine Not on any other meds per DRUG ENFORCEMENT AGENT meds Assessment & Plan (04/11/2024 8:59 AM EST): Orders: OLANZapine (ZYPREXA) 5 mg Oral Tablet; Take 1 Tablet by mouth nightly. Bipolar depression not well-controlled on Vraylar. Will discontinue. Will transition to the Zyprexa as she has had some success with this in the past. If she fails Zyprexa, will follow-up with pharmacogenetics testing at that time as she has failed multiple medications for management of her depression/bipolar Resolved Problems Problem Noted Date Diagnosed Date Resolved Date Biliary colic 06/27/2016 03/08/2019 Additional Health Concerns Active Problems Noted Date Diagnosed Date Going back to old people 12/18/2022 Goals Goal Patient Goal Type Associated Problems [...] to old people No Araseli Lay [facility] Interventions Care Plan Interventions Intervention Entry Date Outcome 1 therapy support group per week 12/18/2022 individual therapy 1 x per week 12/18/2022 establish boundaries with mother- work for independence 12/18/2022 Note:discuss with her brothers that she will need support in having a conversation with her mother complete 1 self care task per week 12/18/2022 NA meetings 2x per week- get a sponsor 12/18/2022 Related Goals and Interventions Goal Associated Intervent ions To find myself again - Expl ore values work and self worth 1 therapy support group per week; individual therapy 1 x per week; establish boundaries with mother- work for independence; complete 1 self care task per week; NA meetings 2x per week- get a sponsor
--- OUTSIDE RECORDS SUMMARY | 2024-12-21 20:51 | XMS_ITS | Clinical Summary ---
Author Organization [facility] OFFICE Address [facility] [employer] [address] [address] Care Team Providers Care Hot Wort Settler Name Role Phone Sacha Lambert MD Primary Care Provider [phone] Allergies Active Allergy Reactions Criticality Noted Date Comments Amlodipine Swelling 01/02/2020 Foot swelling Hydrocodone-Acetaminophen Rash 12/29/2014 Bupropion Hcl Anxiety 11/08/2021 Medications * This document contains information received from the source organization and may not represent a complete record from that organization. Lancets [facility] R73.03 use to check blood glucose for hypoglycemic events 100 Each 2 3 Active EMGALITY PEN 120 mg/mL SubQ Pen InjectorIndicati ons:Migraine with aura and without status migrainosus, not intractable INJECT 1 SYRINGE UNDER THE SKIN EVERY 30 DAYS 1 mL 11 4 Active cloNIDine (CATAPRES) 0.1 mg Oral TabletIndication s:Acute opioid withdrawal (HCC) Take 1 Tablet by mouth every 8 hours as needed for Agitation (withdraw symptoms). 60 Tablet 1 4 Active Additional Information Patient not taking.Reported on 12/06/2024 Blood Pressure Test Kit-Medium [facility] KitIndications:E ssential hypertension 1 Kit by [facility].(Non-Drug; Combo Route) route daily. 1 Kit 4 Active fUROsemide (LASIX) 20 mg Oral TabletIndication s:Leg swelling Take 1 Tablet by mouth daily as needed. 90 Tablet 3 4 Active Additional Information Patient not taking.Reported on 12/06/2024 clindamycin (CLEOCIN T) 1 % Top GelIndications:A cne vulgaris Apply topically 2 times daily. 60 g 1 5 Active cetirizine (ZYRTEC) 10 mg Oral TabletIndication s:Hives Take 1 Tablet by mouth daily. 30 Tablet 2 5 Active famotidine (PEPCID) 40 mg Oral TabletIndication s:Hives Take 1 Tablet by mouth 2 times daily. 60 Tablet 1 5 Active Additional Information Patient not taking.Reported on 12/06/2024 mupirocin (BACTROBAN) 2 % Top OintmentIndicati ons:History of MRSA infection Apply topically 3 times daily. 15 g 5 Active chlorhexidine (HIBICLENS) 4 % Top LiquidIndication s:History of MRSA infection Apply topically as needed for Wound Care. 473 mL 2 5 Active acetaminophen (TYLENOL) 500 mg Oral Tablet Take 500 mg by mouth 2 times daily as needed. 5 Active aspirin-acetamin ophen-caffeine (EXCEDRIN MIGRAINE) 250-250-65 mg Oral Tablet Take 1 Tablet by mouth. Active cholecalciferol, vitamin D3, 25 mcg (1,000 unit) Oral Tablet Take 1,000 Units by mouth daily. Active guanFACINE (TENEX) 1 mg Oral Tablet Take 1 mg by mouth nightly. Active ibuprofen (ADVIL;MOTRIN) 800 mg Oral Tablet 5 Active lisinopriL (PRINIVIL;ZESTRI L) 10 mg Oral Tablet Take 10 mg by mouth daily. Active loratadine (CLARITIN) 10 mg Oral Tablet Take 10 mg by mouth daily. 5 Active melatonin 5 mg Oral Tablet 5 Active mirtazapine (REMERON) 15 mg Oral Tablet 5 Active nalOXone (NARCAN) 4 mg/actuation Nasl [place], Non-Aerosol 5 Active nicotine (NICODERM CQ) 21 mg/24 hr TD Patch 24 hr 5 Active ondansetron (ZOFRAN) 4 mg Oral Tablet 5 Active venlafaxine (EFFEXOR-XR) 37.5 mg Oral Capsule, Sust. Release 24 hr Take 37.5 mg by mouth daily. Active Blood Sugar Diagnostic [facility] StripIndications :Prediabetes 1 Strip by [facility].(Non-Drug; Combo Route) route daily as needed. 100 Each 2 5 Active Blood-Glucose Meter [facility] KitIndications:P rediabetes Use to check blood glucose levels to monitor for hypoglycemic events 1 Kit 5 Active Lancets [facility] MiscIndications: Prediabetes Daily as needed 100 Each 2 5 Active cariprazine (VRAYLAR) 4.5 mg Oral CapsuleIndicatio ns:Bipolar affective disorder, current episode mixed, without psychotic features (HCC) Take 1 Capsule by mouth daily. 90 Capsule 3 5 Active busPIRone (BUSPAR) 10 mg Oral TabletIndication s:Generalized anxiety disorder Take 1 Tablet by mouth 2 times daily. 180 Tablet 3 5 Active buprenorphine-na loxone (SUBOXONE) 8-2 mg SL FilmIndications: Opioid use disorder,Opiate abuse, episodic (HCC),Opioid dependence with opioid-induced disorder (HCC) Place 1 Film under the tongue daily. 11 Each 5 Active Active Problems Problem Noted Date Diagnosed Date Sepsis 06/14/2024 [...] orbital cellulitis ENT consulted Discussed with ENT HARVINDER She will be doing I&D today Assessment [...] Sugar Diagnostic Misc Strip; 1 Strip by Mis.(Non-Drug; Combo Route) route daily as needed. Blood-Glucose Meter Misc Kit; Use to check blood glucose levels to monitor for hypoglycemic events Lancets Mis Misc; Daily as needed Assessment & Plan (04/11/2024 8:59 AM EST): Orders: HEMOGLOBIN A1C; Future TSH REFLEX; Future COMPREHENSIVE METABOLIC PANEL; Future Vitamin D deficiency 12/18/2022 Arm mass, left 10/23/2020 Overview (10/23/2020): Added automatically from request for surgery [id number] Generalized anxiety disorder 04/24/2020 Assessment & Plan [...] 12 steps program 02-03-19. She went to [employer] in [place] to 03/05/19 Consequences of drug use: Loss [...] now. Work hx: Currently working at the prison. Last menstrual period and risk of (for [...] 12 steps program 02-03-19. She went to [employer] in [place] to 03/05/19 Consequences of drug use: Loss [...] now. Work hx: Currently working at the prison. Last menstrual period and risk of (for [...] a 10-day supply of buprenorphine. Referred to [facility] for further addiction management and counseling services [...] renal function Orders: Blood Pressure Test Kit-Medium [facility] Kit; 1 Kit by [facility].(Non-Drug; Combo Route) route [...] hydroxyzine Not on any other meds per [employer]PLIANCE REPAIR TECHNICIAN meds Assessment & Plan (06/16/2024 8:53 AM EST): Continue hydroxyzine Not on any other meds per [employer] REPAIR TECHNICIAN meds Assessment & Plan (06/15/2024 9:57 AM EST): Continue hydroxyzine Not on any other meds per [employer] REPAIR TECHNICIAN meds Assessment & Plan (06/14/2024 1:16 PM EST): Continue hydroxyzine Not on any other meds per [employer] REPAIR TECHNICIAN meds Assessment & Plan (04/11/2024 8:59 AM [...] Date Resolved Date Biliary colic 06/27/2016 03/08/2019 Encounters * This document contains information received from the source organization and may not represent a complete record from that organization. Date Type Department Care Team Description 12/06/2024 8:00 AM EDT Office Visit [address] [place] [phone] Sacha Lambert MD Opioid use disorder (Primary Dx); Opiate abuse, episodic (HCC); Opioid dependence with opioid-induced disorder (HCC); Elevated blood sugar; Bipolar affective disorder, current episode mixed, without psychotic features (HCC) 12/01/[address] [place] [phone] Sacha Lambert MD Appointment Needed 11/24/2024 9:30 AM EDT Office Visit [address] [place] [phone] Sacha Lambert MD Opiate abuse, episodic (HCC) (Primary Dx); Prediabetes; Bipolar affective disorder, current episode mixed, without psychotic features (HCC); Generalized anxiety disorder; Opioid dependence with opioid-induced disorder (HCC) 11/24/[address] [place] [phone] Sacha Lambert MD Other (calling to say amelia can't get pt in until December 16. ) 11/07/[address] [place] [phone] Sacha Lambert MD Appointment Needed (suboxone) from Last 3 Months Immunizations Immunization Administration Dates Next Due Influenza Seasonal Injectable PF 01/29/2024 Influenza Vaccine, Unspecified Formulation 02/15,02/03/2012 PPD Test 03/23/2019 Tdap 01/21/2023 Surgical History Surgery Date Site/Laterality Comments TONSILLECTOMY AND ADENOIDECTOMY as a kid not for sure what age CHOLECYSTECTOMY, LAPAROSCOPIC 07/08/2016 Abdomen/N/A LAPAROSCOPIC CHOLECYSTECTOMY ; Surgeon: Bing Lazaro MD; Location: [facility] MAIN OR; Service: General TUBAL LIGATION HYSTERECTOMY 06/16/2018 Bilateral ROBOTIC ASSSITED LAPAROSCOPIC TOTAL HYSTERECTOMY WITH REMOVAL OF PORTION OF FALLOPIAN TUBE; Surgeon: Oswald Miner MD; Location: [facility] MAIN OR; Service: Gynecology SOFT TISSUE BIOPSY 10/29/2020 Left EXCISION OF LEFT ARM MASS; Surgeon: Joanne Garcia MD; Location: [facility]; Service: General Medical History Medical History Date Comments Bipolar affective (HCC) ADHD (attention deficit hype ractivity disorder) Depression Heartburn Hypertension has been prescri bed metoprolol in the past but declines to take Headache migraines Motion sickness Post-operative nausea and vomiting Opiate abuse, episodic (HCC) 04/04/2019 Endometriosis Generalized anxiety disorder 04/24/2020 Asthma seasonal, uses i nhaler Anxiety disorder Bipolar disorder (HCC) IFG (impaired fasting glucose) 01/26/2023 Family History Medical History Relation Name Comments Diabetes Brother High Blood Pressure Brother Depression Father Heart Disease Father Breast Cancer Maternal Aunt Diabetes Maternal Grandfather Heart Attack Maternal Grandfather Heart Failure Maternal Grandfather High Blood Pressure Maternal Grandfather Kidney Disease Maternal Grandfather coronary artery bypass Maternal Grandfather Diabetes Maternal Grandmother High Blood Pressure Maternal Grandmother Thyroid Disease Maternal Grandmother No Known Problems Maternal Uncle Arthritis Mother Asthma Mother Depression Mother Diabetes Mother Elevated Lipids Mother High Blood Pressure Mother High Cholesterol Mother Kidney Disease Mother Obesity Mother No Known Problems Other No Known Problems Paternal Aunt Diabetes Paternal Grandfather Heart Attack Paternal Grandfather Heart Failure Paternal Grandfather High Blood Pressure Paternal Grandfather Kidney Disease Paternal Grandfather Obesity Paternal Grandfather coronary artery bypass Paternal Grandfather Depression Paternal Grandmother High Blood Pressure Paternal Grandmother Kidney Disease Paternal Grandmother Seizures Paternal Uncle No Known Problems Sister Seizures Son Anesth Problems Neg Hx Defects Neg Hx Bleeding Prob Neg Hx Cancer Neg Hx [place] Neg Hx Clotting Disorder Neg Hx Cystic Fibrosis Neg Hx Down Syndrome Neg Hx Heart Defect Neg Hx Hypertension Neg Hx Mental Retardation Neg Hx Migraines Neg Hx Osteoarthritis Neg Hx Ovarian Cancer Neg Hx PKU Neg Hx Rashes/Skin Problems Neg Hx Rheum Arthritis Neg Hx Sickle Cell Anemia Neg Hx Stroke Neg Hx Relation Name Status Comments Brother Father Maternal Aunt Maternal Grandfather Maternal Grandmother Maternal Uncle Mother Other Paternal Aunt Paternal Grandfather Paternal Grandmother Paternal Uncle Sister Son Social History Tobacco Use Types Packs/Day Years Used Date Smoking Tobacco: Every Day Cigarettes 1.5 21.6 Started: 05/18/2003 Smokeless Tobacco: Never Tobacco Cessation:Ready to Q uit: Not Asked; Counseling Given: Not Answered Comments:Currently Vaping Alcohol Use Standard Drinks/Week Comments No 0 (1 standard drink = 0.6 oz pur e alcohol) recovering; none since [facility] Utilities Answer Date Recorded In the past 12 months has th e electric, gas, oil, or water company threatened to shut off services in your home? No 06/14/2024 Overall Financial Resource Strain (CARDIA) Answe r Date Recorded How hard is it for you to pa y for the very basics like food, housing, medical care, and heating? Somewhat hard 06/14/2024 PHQ-2 Answer Date Recorded PHQ-2 Total Score 2 06/14/2024 [facility] [place] of Occupat ional Health - Occupational Stress [...] things needed for daily living? No 12/18/2022 [facility] IP Transportation Answer D ate [...] on file Sexual Orientation Not on file Obstetrics History Para Term AB IAB SAB Ectopic Multiple Livin g Live Births 2 2 2 2 2 Date Outcome GA Total Labor Labor/2nd/3rd Weight Sex Type Anes PTL Tika A1 A5 Name Clin Term Vag-S pont Living Term Vag-S pont Living Last Filed Vital Signs Vital Sign Reading [...] Mass Index 32.79 12/06/2024 8:04 AM EDT Plan of Treatment Health Maintenance Due Date Last Done Comments Annual Wellness Exam 1993 Pneumococcal Vaccine 0-49 (1 of 2 - PCV) 2009 COVID-19 Vaccine (2 - season) 2024 07/15/2022 Influenza Vaccine (#1) 2025 , 02/16/2020, 04/07/2017 (Declined), Additional history exists DTaP/TDaP/Td (4 - Td or Tdap) 01/19/2034 01/20/2024, 01/21/2023, 10/23/2004 Hepatitis B Vaccine Completed 09/16/2002, 02/03/2002, 12/31/2001 Meningococcal B Vaccine Aged Out No delfin middletonger eligible based on patient's age to complete this topic Goals Goal Patient Goal Type Associated Problems [...] back to old people No Araseli Lay [facility] Procedures Procedure Name Priority Date/Time Associated Diagnosis Comments POCT URINE DRUG SCREEN ICUP 14 Routine 11/24/2024 9:44 AM EDT Opiate abuse, episodic (HCC) Opioid dependence with opioid-induced disorder (HCC) COMPLIANCE OPIOID PANEL QUANT ONLY, URINE Routine 11/24/2024 9:44 AM EDT Opiate abuse, episodic (HCC) Opioid dependence with opioid-induced disorder (HCC) from Last 3 Months Results * (ABNORMAL) POCT URINE DRUG SCREEN ICUP [...] CARE TEST ORDERABLES Final Result SEP OFFICE * (ABNORMAL) COMPLIANCE OPIOID PANEL QUANT ONLY, URINE (11/24/2024 9:44 AM EDT) Pathologist [facility] Medications Expected Buprenorphine 11/25/2024 4:06 PM EDT [facility] Hydrocodone <50 Cutoff 50 ng/mL ng/mL 11/25/2024 4:06 PM EDT [facility] Comment:e.g., Lorcet, Lortab , Vicodin, [place]; Minor Metabolite of Codeine Dihydrocodeine <50 Cutoff 50 ng/mL ng/mL 11/25/2024 4:06 PM EDT [facility] Comment:e.g., Didrate, Parzo ne, Parlor, Synalgos; Metabolite of Hydrocodone Norhydrocodone <50 Cutoff 50 ng/mL ng/mL 11/25/2024 4:06 PM EDT [facility] Comment:Metabolite of Hydroc odone Hydromorphone <50 Cutoff 50 ng/mL ng/mL 11/25/2024 4:06 PM EDT [facility] Comment:e.g., Dilaudid; also Metabolite of Hydrocodone and Minor Metabolite of Morphine Hydromorphone Glucuronide <50 Cutoff 50 ng/mL ng/mL 11/25/2024 4:06 PM EDT [facility] Comment:Metabolite of Hydrom orphone Oxycodone <50 Cutoff 50 ng/mL ng/mL 11/25/2024 4:06 PM EDT [facility] Comment:e.g., Oxycontin, Per cocet, Endocet, Percodan, Roxicet Noroxycodone <50 Cutoff 50 ng/mL ng/mL 11/25/2024 4:06 PM EDT [facility] Comment:Metabolite of Oxycod one Oxymorphone <50 Cutoff 50 ng/mL ng/mL 11/25/2024 4:06 PM EDT [facility] Comment:e.g., Opana; Metabol ite of Oxycodone Oxymorphone Glucuronide <50 Cutoff 50 ng/mL ng/mL 11/25/2024 4:06 PM EDT [facility] Comment:Metabolite of Oxycod one Noroxymorphone <50 Cutoff 50 ng/mL ng/mL 11/25/2024 4:06 PM EDT [facility] Comment:Metabolite of Oxycod one, and Oxymorphone, Noroxycodone Metabolite Tramadol <50 Cutoff 50 ng/mL ng/mL 11/25/2024 4:06 PM EDT [facility] Comment:e.g., Ultram, ConZip S-Kkvallwae-hld-Tra madol <50 Cutoff 50 ng/mL ng/mL 11/25/2024 4:06 PM EDT [facility] Comment:Metabolite of Tramad ol Codeine <50 Cutoff 50 ng/mL ng/mL 11/25/2024 4:06 PM EDT [facility] Comment:e.g., Acetaminophen w/Codeine, Tylenol3 w/ Codeine Codeine Glucuronide <50 Cutoff 50 ng/mL ng/mL 11/25/2024 4:06 PM EDT [facility] Comment:Metabolite of Codein e Meperidine <50 Cutoff 50 ng/mL ng/mL 11/25/2024 4:06 PM EDT [facility] Comment:e.g., Demerol, Pethi dine Normeperidine <50 Cutoff 50 ng/mL ng/mL 11/25/2024 4:06 PM EDT [facility] Comment:Metabolite of Meperi dine Morphine <50 Cutoff 50 ng/mL ng/mL 11/25/2024 4:06 PM EDT [facility] Comment:e.g., MS Contin, Carla anol; Metabolite of Codeine and Heroin; may reflect poppy seed ingestion Lqmmcnil-0-Rcdrdsww tha <25 Cutoff 25 ng/mL ng/mL 11/25/2024 4:06 PM EDT [facility] Comment:Metabolite of Morphi ne. Kbrqvwwo-9-Ibborzow tha <25 Cutoff 25 ng/mL ng/mL 11/25/2024 4:06 PM EDT [facility] Comment:Metabolite of Morphi ne. Naloxone <25 Cutoff 25 ng/mL ng/mL 11/25/2024 4:06 PM EDT [facility] Comment:e.g., Narcan, Evzio Buprenorphine <5 Cutoff 5 ng/mL ng/mL 11/25/2024 4:06 PM EDT [facility] Comment:e.g., Suboxone, Subu angelina,Sublocade, Buprenex Buprenorphine Glucuronide 53(H) Cutoff 10 ng/mL ng/mL 11/25/2024 4:06 PM EDT [facility] Comment:Buprenorphine Metabo lite Norbuprenorphine 108(H) Cutoff 5 ng/mL ng/mL 11/25/2024 4:06 PM EDT [facility] Comment:Buprenorphine Metabo lite Norbuprenorphine Glucuronide >400(H) Cutoff 10 ng/mL ng/mL 11/25/2024 4:06 PM EDT [facility] Comment:Buprenorphine Metabo lite Fentanyl <1 Cutoff 1 ng/mL ng/mL 11/25/2024 4:06 PM EDT [facility] Comment:e.g.,Duragesic, Oral et, Actiq, Sublimaze, Innovar, Lazanda Norfentanyl <1 Cutoff 1 ng/mL ng/mL 11/25/2024 4:06 PM EDT [facility] Comment:Metabolite of Fentan yl 6-Monoacetylmorphin e (6MAM) <10 Cutoff 10 ng/mL ng/mL 11/25/2024 4:06 PM EDT [facility] Comment:Metabolite of Heroin ; Morphine is expected Methadone <50 Cutoff 50 ng/mL ng/mL 11/25/2024 4:06 PM EDT [facility] Comment:e.g., Dolophine, Met hadose, Amidone EDDP <50 Cutoff 50 ng/mL ng/mL 11/25/2024 4:06 PM EDT [facility] Comment:Methadone Metabolite Tapentadol <50 Cutoff 50 ng/mL ng/mL 11/25/2024 4:06 PM EDT [facility] Comment:Nucynta Tapentadol-Glucuron tha <50 Cutoff 50 ng/mL ng/mL 11/25/2024 4:06 PM EDT [facility] Comment:Metabolite of Tapent adol Urine Creatinine 224.0 mg/dL 11/26/19 25 4:06 PM EDT [facility] Comment: Greater than 20: Consistent with valid sample Greater than 2 but less than 20: Possible dilution Less than 2: Questionable valid sample Urine STRUCTURE OF URINARY TRACT PROPER / Unknown 11/24/2024 9:44 AM EDT 11/24/2024 9:44 AM EDT Narrative [facility] - 11/25/2024 4:06 PM EDT The absence of expected drug(s), and/or drug metabolite(s), may indicate non-compliance, diluted or adulterated urine, poor drug absorption, concentration of drug below the cut-off, timing of specimen collection relative to administration of drug, or limitations of testing. Specimens are held for 7 days. This test was developed, and its performance characteristics determined by [facility] [place] ([facility]). It has not been cleared or approved by the FDA. This test is used for clinical purposes. It should not be regarded as investigational or for research. [facility] is certified under the Clinical Laboratory Improvement Amendments (CLIA) as qualified to perform high complexity clinical laboratory testing. Sacha Lambert MD URINE ORDERABLES Final Result [facility] [address] [facility] [place] [phone] [facility] [address] [place] [phone] from Last 3 Months Additional Health Concerns Active Problems Noted Date Diagnosed Date Going back to old people 12/18/2022 Insurance [id number] [address] [employer] [facility] MDR [id number] [facility] [address] [employer] [facility] MDR Advance Directives For more information, please contact: [phone] * Full Code (Latest Code Status on File) Date Activated Date Inactivated Comments 06/14/2024 1:04 PM 06/17/2024 10:23 PM * Full Code Date Activated Date Inactivated Comments 05/16/2024 10:04 AM 05/19/2024 4:02 PM * Full Code Date Activated Date Inactivated Comments 06/16/2018 3:26 PM 06/17/2018 5:51 PM Care Teams Hot Wort Settler Relationship Specialty Start Date End Date Sacha Lambert MD [address] [place] [address] [place] [address] PCP - General Family Medicine 03/08/19
--- OUTSIDE RECORDS SUMMARY | 2024-12-21 20:51 | XMS_ITS | Encounter Summary ---
Author Organization [place] [address] Care Team Providers Care Gasket Winder Name Role Phone Sacha Lambert MD Primary Care Provider Reason for Visit * Reason Onset Date Comments Appointment Needed 11/07/2024 suboxone Encounter Details Date Type Department Care Team (Late st Contact Info) Description 11/07/2024 Telephone SEP [place] [address] [place] [phone] Sacha Lambert MD [address] [place] [address] [place] [phone] Appointment Needed (suboxone) Social History Tobacco Use Types Packs/Day Years [...] Date Recorded PHQ-2 Total Score 2 06/14/2024 [facility] [place] of Occupat ional Health - Occupational Stress [...] things needed for daily living? No 12/18/2022 [facility] IP Transportation Answer D ate Recorded [...] Partida, ESVIN * Does this person have difficulty dressing [...] Telephone Encounter - Kacie Shah RMA - 11/07/2024 12:42 PM EDT Appt made * Telephone Encounter - Reji Garg CCMA - 11/07/2024 12:13 PM EDT Select the most appropriate reason for this telephone message: Appointment Needed Appointment Requested By: Patient Provider Preference: Other Dr. Zia Lambert Type of Appt Needed: Office Visit Detailed Reason for Appt: suboxone Requested Timeframe: Please call mom to schedule Reason Scheduling Assistance is Needed: Call Center not permitted to schedule Return Method of Communication: Phone Call Additional Information: N/A documented in this encounter [...] documented as of this encounter Care Teams Gasket Winder Relationship Specialty Start Date End Date Sacha Lambert MD [address] [place] [address] [place], [place] [id number] PCP - General Family Medicine 03/08/19 documented as of this encounter
[2024-12-21 21:33] VITALS: BP 129/70; PULSE 87; O2SAT 100
[2024-12-21 22:01] VITALS: BP 113/80; PULSE 91; RESP 16; O2SAT 100
[2024-12-21 22:20] VITALS: BP 113/80; PULSE 91; RESP 16; TEMP 36.5; O2SAT 99
== END 2024-12-21 22:22 | disposition home or self-care (01) ==
PROVIDERS: Emergency Provider Emergency Medicine; PCP Family Medicine
DX: R51.9 Headache, unspecified (principal); M79.642 Pain in left hand; M54.2 Cervicalgia; G93.0 Cerebral cysts; Y04.8XXA Assault by other bodily force, initial encounter
CPT/HCPCS: 70450; 72125; 73130; 96361; 96374; 96375; 99285; J1200; J1885; J2765; J7120